=== PATIENT | female | born 1945 | race Caucasian/White ===

== ENCOUNTER 2016-08-09 14:11 | Inpatient (IN) | payer MEDICARE ==
[~2016-08-09] VITALS: Ht 160 cm; Wt 63.5 kg
[~2016-08-09 14:11] MED LIST: ABILIFY2 MG PO; AMBIEN; AMBIEN10 M1 PO; ASPIRIN81 M1 PO; ATIVAN1 MG PO; CELEXA40 MG PO; DEPAKOTE500 M1 PO; INDERAL20 MG PO; LORAZEPAM1 M1 PO; RESPERDAL; RISPERDAL0.25 MG PO; RISPERDAL2 MG PO; SLEEPING PILL PO; VISTARIL25 MG PO
[2016-08-09 15:02] VITALS: BP 153/68
--- NOTE | 2016-08-09 16:50 | NUR ---
PT TO BED 1.
--- NOTE | 2016-08-09 16:51 | NUR ---
DR. SMITH AT BEDSIDE, WITH ORDER TO PUT INDWELLING CATHETER
--- NOTE | 2016-08-09 16:51 | NUR ---
Patient being evaluated by physician at bedside.
[2016-08-09] MEDS ORDERED: NACL 0.9% 500 ML IV ONE (16:55)
--- NOTE | 2016-08-09 17:00 | NUR ---
APATIENT PRESENTS TO ED DUE TO GEN WEAKNESS AND COUGHING AND UNABLE TO URINATE AND UNABLE TO WALK X5 DAYS .DENIES N/V/D; SKIN IS PINK/WARM/DRY; AAOX4 WITH EVEN AND STEADY GAIT; LUNGS CLEAR BL; HR EVEN AND REGULAR; PT DENIES ANY FEVER, CP, SOB, PATIENT STATES PAIN OF 0/10 AT THIS TIME; PATIENT POSITIONED FOR COMFORT; HOB ELEVATED; BEDRAILS UP X2; BED DOWN. ER MD MADE AWARE OF PT STATUS.
--- NOTE | 2016-08-09 17:00 | NUR ---
RAY IN WITH OUT DIFFICULTY, NO BLEEDING NOTED.
--- NOTE | 2016-08-09 17:17 | NUR ---
PT WENT TO THE CT PT AAO VIA MICHEL
--- NOTE | 2016-08-09 17:28 | NUR ---
RELAYED TO DR. SMITH RESULT OF URINE DIPSTICK
--- NOTE | 2016-08-09 18:24 | NUR ---
PT AAO, GRAND DAUGHTER AT BEDSIDE, AWARE PT WILL BE ADMITTED, SKIN WARM TO TOUCH RESP. EVEN AND UNLABORED, IVF ONGOING VIA PERIPHERAL LINE WELL TOLERATED.
--- NOTE | 2016-08-09 18:28 | NUR ---
NOTED VERY DRY LOWER EXTREMITIES AND PLANTAR
--- NOTE | 2016-08-09 18:36 | NUR ---
CALL PLACE TO TELE FOR REPORT WILL CALL ME BACK
--- NOTE | 2016-08-09 18:43 | NUR ---
REPORT GIVEN TO EDWARDO IN TELE
--- NOTE | 2016-08-09 18:59 | NUR ---
TRANSFER TO TELE, PT AAO, GRAND DAUGHTER AT BEDSIDE, NO SOB , RAY DRAINING TO A DINO URINE.
--- NOTE | 2016-08-09 19:00 | NUR ---
ADMITTED THIS 71 YEAR OLD FEMALE FROM ER PER TAMERA WITH CC OF GEN WEAKNESS, AAOX4, DENIES ANY PAIN, ASSESSMENT DONE, HX OBTAINED FROM PT AND GRANDDAUGHTER JULIANNA AT BEDSIDE, SKIN INTACT, RAY CATHETER IN PLACE WITH STRAW COLORED OUTPUT, EDEMA TO PER LEG +1, ORIENTED TO ROOM AND CALL LIGHT, SAFETY MEASURES IN PLACE, CALL LIGHT WITHIN REACH.
[2016-08-09 19:30] VITALS: BP 139/53
[2016-08-09] MEDS ORDERED: ONDANSETRON 4 MG/2 ML VIAL IVP PRN (19:55)
[2016-08-09] MEDS ORDERED: PNEUMOCOCCAL VACCINE 23 MCG/0.5 ML VIAL IMVAC PRN (20:15)
[2016-08-09] MEDS ORDERED: LACTULOSE10 GM/152 PO (20:16)
[2016-08-09] MEDS: NACL 0.9% 1,000 ML IV SCH (20:35)
--- NOTE | 2016-08-09 20:40 | NUR ---
PT HUNGRY, ASSISTED BY BATCH STILL OPERATOR TO EAT TUNA SANDWICH AND ORANGE JUICE X2, CONSUMED 100%, TOLERATED WELL, IVF OF NS @80ML/H STARTED, ALL NEEDS ATTENDED.
--- NOTE | 2016-08-09 22:00 | NUR ---
PT SLEEPING, EASILY AROUSABLE, REPOSITION Q2H AND OFFLOAD PRESSURE AREAS, MONITORED CLOSELY.
[2016-08-09] MEDS: ACETAMINOPHEN 325 MG TAB PO PRN (23:14)
[2016-08-09] MEDS ORDERED: cefTRIAXone 1,000 MG VIAL ONE (23:15)
[2016-08-09 23:20] VITALS: BP 152/73
--- NOTE | 2016-08-09 23:20 | NUR ---
ORAL TEMP OF 101.7, PAGED DR MONTES WITH NEW ORDERS, DO BLOOD CULTURE X2 AND TO START ON ROCEPHIN IVPB, TYLENOL 650 MG PO GIVEN, COOLING MEASURES DONE, MONITORED CLOSELY.
[2016-08-10 00:39] VITALS: BP 148/71
--- NOTE | 2016-08-10 01:00 | NUR ---
VITAL SIGNS TAKEN, TEMP-99.8, CONTINUE COOLING MEASURES, NO SIGNS OF DISTRESS, NO REACTION FROM ROCEPHIN IVPB, MONITORED CLOSELY.
--- NOTE | 2016-08-10 02:00 | NUR ---
OCCASIONAL COUGH NOTED, ENCOURAGE TO EXPECTORATE PHLEGM, NONE NOTED AT THIS TIME, MONITORED CLOSELY.
[2016-08-10 04:00] VITALS: BP 138/82
[2016-08-10] MEDS: ACETAMINOPHEN 325 MG TAB PO PRN ×2 (04:07→20:24)
--- NOTE | 2016-08-10 04:10 | NUR ---
VITAL SIGNS STABLE, AFEBRILE, COMPLAINING O HEADACHE, MEDICATED PRN WITH TYLENOL, MONITORED CLOSELY.
--- NOTE | 2016-08-10 06:00 | NUR ---
PT REPOSITION TO RT SIDE, IVF INFUSING WELL, CONT ON O2 AT 2L/NC, OCCASIONAL COUGH NOTED, DENIES ANY PAIN.
--- NOTE | 2016-08-10 07:10 | NUR ---
CRITICAL LAB RESULTS RECEIVED, PAGED DR MONTES WITH ORDERS, D50 W 1 AMP GIVEN FOR GLUCOSE OF 41, DR BARRERA FOR CONSULT FOR ELEVATED TROPONIN, WILL ENDORSE. Addendum: 08/10/16 at 0733 by Storm Mujica RN CHARTED ON WRONG PT.
--- NOTE | 2016-08-10 07:15 | NUR ---
PT AWAKE, NO DISTRESS NOTED, REPORT GIVEN TO ROLF CELESTIN FOR CONTINUITY OF CARE.
--- NOTE | 2016-08-10 07:16 | NUR ---
RECEIVED REPORT FROM THE SHUTTLE ROUTE VEHICLE OPERATOR NURSE AT BEDSIDE. PT IS ALERT AND ORIENTED. NOTED PT'S IV ON THE L AC 20G NS AT 80. NOTED THAT PT HAD A RAY CATH. WILL BE BACK TO ASSESS HER. CALL LIGHT WITHIN REACH. ALL SAFETY MEASURES IN PLACE.
--- NOTE | 2016-08-10 07:25 | NUR ---
PT OPEN EYES TO TOUCH, NONVERBAL, FAMILY MEMBERS AT BEDSIDE, REPORT GIVEN TO FOSTER CELESTIN FOR CONTINUITY OF CARE. Addendum: 08/10/16 at 8204 by Storm Mujica RN CHARTED ON WRONG PT.
--- NOTE | 2016-08-10 07:45 | NUR ---
PT V/S ARE WITHIN NORMAL RANGE. SKIN IS INTACT. BLE EDEMA , PITTING +2. PT IS ON NC 2.AT 2L. SHE HAS AN OCCASIONAL COUGH, NON-PRODUCTIVE. PT CHEEKS AR FLUSHED. IV ON L AC , PATENT AND INFUSING NS AT 80; RAY CATH BAG IS FULL OF YELLOW CLEAR URINE 600ML. TEMP AT 99.6F. NO COMPLAINTS AT THIS TIME. WILL CONTINUE TO CHECK ON PT.
[2016-08-10 08:00] VITALS: BP 142/76
[2016-08-10] MEDS: NACL 0.9% 1,000 ML IV SCH ×3 (09:16→23:36)
[2016-08-10] MEDS: ENOXAPARIN 30 MG/0.3 ML SYR SUBQ SCH (09:17)
--- NOTE | 2016-08-10 09:30 | NUR ---
GRANDSON CAME AND ASKED ABOUT HER CONDITION. EXPLAINED TO HIM THAT SHE IS STILL UNDER OBSERVATION. SHE STILL HAS A RAY FOR URINE RETENTION. WAITING ON THE 3RD TROPONIN TODAY. THE LAST TWO WERE NORMAL. PT IS STILL VERY WEAK. POSSIBLY NEED A PT EVAL AND TX. WAITING ON RESULT TO BLOOD CULTURES FOR FEVER. ANSWERED ALL QUESTIONS. EDUCATE PT ABOUT WALKING AND GETTING LEG EXERCISE. HE STATES SHE IS USUALLY IN BED THE WHOLE TIME. WILL CONTINUE TO MONITOR.
[2016-08-10 12:00] VITALS: BP 135/70
--- NOTE | 2016-08-10 12:00 | NUR ---
V/S STABLE. NO SIGNS OF DISTRESS OR COMPLAINTS. WILL CONTINUE TO MONITOR PT.
--- NOTE | 2016-08-10 14:00 | NUR ---
PT SLEEPING. RESTING COMFORTABLY WITH NO SIGNS OF DISTRESS. WILL CONTINUE TO MONITOR PT.
[2016-08-10 16:00] VITALS: BP 147/70
--- NOTE | 2016-08-10 16:00 | NUR ---
PT'S GRANDSON WAS HERE AGAIN. NO OTHER UPDATES BEING THURSDAY AND ALL. SHE C/O OF COUGHING. SPOKE W/ DR. MONTES AND ORDERED HER SOME MUCINEX BID. WILL HAVE HER FIRST DOSE TONIGHT.
[2016-08-10] MEDS ORDERED: LACTULOSE BULK 2400 GM/240 ML BTL PO SCH (17:00)
[2016-08-10] MEDS: LACTULOSE 20 GM/30 ML UDC PO SCH (17:09)
[2016-08-10] MEDS: PROPRANOLOL 20 MG TAB PO SCH (17:11)
--- NOTE | 2016-08-10 18:15 | NUR ---
NEEDED THE BEDPAN. HAS A SMALL BM. IS HAVING DINNER NOW. NO COMPLAINTS. WILL CONTINUE TO MONITOR.
--- NOTE | 2016-08-10 19:20 | NUR ---
ENDORSED PT TO THE NIGHTSHIFT NURSE AT BEDSIDE FOR CONTINUITY OF CARE. PT IS STABLE.
--- NOTE | 2016-08-10 19:25 | NUR ---
RECEIVED PT AWAKE ON HIGH FOWLERS POSITION CURRENTLY BEING ASSISTED BY KRYSTAL WOODSON IN EATING HER DINNER, TOLERATING WELL WITH GOOD APPETITE, OCCASIONAL DRY COUGH NOTED, ON O2 AT 2L/NC, VITAL SIGNS TAKEN, BP SLIGHTLY ELEVATED, DENIES ANY PAIN, TEMP-100.7, WILL GIVE TYLENOL PO PRN, COOLING MEASURES STARTED, RAY CATH IN PLACE WITH YELLOW OUTPUT, SAFETY MEASURES IN PLACE, CALL LIGHT WITHIN REACH.
[2016-08-10 20:00] VITALS: BP 153/90
[2016-08-10] MEDS: risperiDONE 1 MG TAB PO SCH (20:24)
[2016-08-10] MEDS: hydrOXYzine PAMOATE 25 MG CAP PO SCH (20:24)
[2016-08-10] MEDS: guaiFENesin 600 MG TABER PO SCH (20:24)
--- NOTE | 2016-08-10 20:30 | NUR ---
DUE MEDICATIONS GIVEN, TYLENOL PO GIVEN FOR TEMP OF 100.7, CONTINUE COOLING MEASURES, REPOSITIONED Q2H AND OFFLOAD PRESSURE AREAS.
[2016-08-10] MEDS: LORazepam 1 MG TAB PO SCH (22:18)
--- NOTE | 2016-08-10 22:20 | NUR ---
ATIVAN PO GIVEN FOR SLEEP, MONITORED CLOSELY.
--- NOTE | 2016-08-10 23:40 | NUR ---
SLEEPING, EASILY AROUSABLE BUT DROWSY, VITAL SIGNS STABLE, AFEBRILE, NO SIGNS OF DISTRESS, CONTINUE TO MONITOR CLOSELY.
[2016-08-11] VITALS (7 sets, daily range): BP systolic 108–153; BP diastolic 61–87
--- NOTE | 2016-08-11 03:40 | NUR ---
ASLEEP, EASILY AROUSABLE, VITAL SIGNS STABLE, AFEBRILE, IVF INFUSING WELL.
--- NOTE | 2016-08-11 05:00 | NUR ---
BM WITH SMALL SOFT STOOL, PERINEAL CARE DONE, CONTINUE TO REPOSITION Q2H AND OFFLOAD PRESSURE AREAS.
--- NOTE | 2016-08-11 07:15 | NUR ---
PT AWAKE, VERBALLY RESPONSIVE, NO SIGNS OF DISTRESS, REPORT GIVEN TO RN ALEXIS FOR CONTINUITY OF CARE.
--- NOTE | 2016-08-11 07:30 | NUR ---
REPORT RECEIVED AT BEDSIDE FROM SABI PATEL . PATIENT IN BED , AWAKE,ALERT ,ORIENTED (T/2) , ABLE TO ANSWER QUESTIONS AND FOLLOW COMMANDS. WITH 02 VIA NC , NO SOB NOTED. WITH IV FLUIDS INFUSING WELL. PATIENT WITH RAY CATH DRAINING WELL . PLAN OF CARE DISCUSSED WITH HER , SHE VERBALIZED UNDERSTANDING , BUT NEED REINFORCEMENT . WILL CONTINUE MONITORING.
[2016-08-11] MEDS: guaiFENesin 600 MG TABER PO SCH ×2 (09:33→21:15)
[2016-08-11] MEDS: LACTULOSE 20 GM/30 ML UDC PO SCH ×3 (09:33→17:34)
[2016-08-11] MEDS: PROPRANOLOL 20 MG TAB PO SCH ×3 (09:33→17:34)
[2016-08-11] MEDS: ENOXAPARIN 30 MG/0.3 ML SYR SUBQ SCH (09:34)
--- NOTE | 2016-08-11 11:15 | NUR ---
PATIENT HAS BEEN SCREENED AND CATEGORIZED MODERATE NUTRITION RISK. PATIENT WILL BE SEEN WITHIN 3-5 DAYS OF ADMISSION. 08/12/16-08/14/[address]
[2016-08-11] MEDS: NACL 0.9% 1,000 ML IV SCH ×2 (11:35→21:51)
--- NOTE | 2016-08-11 14:42 | NUR ---
FAXED INITIAL REVIEW TO [facility] [phone] PHONE ARTEMIO [phone] SPOKE WITH ARTEMIO ABOUT SNF. SHE SAID TO USE [facility].
[2016-08-11] MEDS ORDERED: ASPIRIN 81 MG TAB.CHEW PO SCH (15:30)
--- NOTE | 2016-08-11 16:48 | NUR ---
RECEIVED A CALL FROM JOSELITO FROM [facility]. THE PATIENT HAS BEEN ACCEPTED AND CAN GO TO ROOM 129D UNDER DR FIGUEROA. WAITING FOR ORDER.
[2016-08-11] MEDS ORDERED: MUCINEX PO (16:56)
[2016-08-11] MEDS ORDERED: NOVAPLUS ONDA2 MG/M1 IVP (16:56)
[2016-08-11] MEDS ORDERED: LOVENOX30 MG/0.1 SUBQ (16:56)
[2016-08-11] MEDS ORDERED: ZITHROMAX500 M1 IV (16:56)
[2016-08-11] MEDS ORDERED: ROCEPHIN2 GM IVP (16:57)
--- NOTE | 2016-08-11 16:58 | NUR ---
SPOKE WITH DR MONTES AND INFORMED HIM ABOUT PATIENT SPIKING TEMP LAST NIGHT AND HER O2 SATS. HE SAID HE WOULD STILL SEND PATIENT TODAY TO [facility] ON O2 THERAPY, IV ANTIBIOTICS AND FOR PT. I SPOKE WITH ARTEMIO AT [facility] AND INFORMED HER. SHE SAID SHE ALREADY GAVE THE AUTH TO [facility]. THE AUTH FOR [facility] IS [id number]. PHONE FOR [facility] [phone]. I CALLED [facility] AND SPOKE WITH MIK CELESTIN FORCE DISPATCHER AND INFORMED HER THAT THIS PATIENT WILL BE COMING TODAY FOR PT, IV ANTIBIOTICS AND O2 THERAPY. SHE SAID NO PROBLEM. MARIAH CELESTIN CHARGE NURSE AWARE. SHE WILL SET UP TRANSPORT.
--- NOTE | 2016-08-11 18:00 | NUR ---
SPOKE WITH [facility] ([phone]). PT WILL BE PICKED UP AT 2130 HRS TONIGHT VIA WHEELCHAIR AND OXYGEN. PT IS GOING TO [facility] ROOM 129-D.
--- NOTE | 2016-08-11 19:39 | NUR ---
REPORT GIVEN VIA PHONE TO [facility] RN
--- NOTE | 2016-08-11 19:40 | NUR ---
REPORT GIVEN AT BEDSIDE TO SABI PARSON FOR CONTINUITY OF CARE.
--- NOTE | 2016-08-11 19:45 | NUR ---
RECEIVED REPORT FROM DAY NURSE, ALEXIS, FOR CONTINUITY OF CARE. PATIENT READY FOR TRANSFER TO [facility]. REPORT ALREADY CALLED, AND TRANSPORTATION HAS BEEN SET UP. PATIENT IS RESTING IN BED. NO RESPIRATORY DISTRESS, SOB, OR DISCOMFORT; PATIENT ON O2 2L NC, TOLERATING WELL. INITIAL ASSESSMENT AND BODY CHECK DONE. PATIENT IS AOX3, FORGETFUL, REDNESS NOTED TO PERINEAL AREA, IV ACCESS TO LEFT AC 20G, PATENT. PATIENT HAS F/C IN PLACE DRAINING CLOUDY YELLOW. DISCUSSED PLAN OF CARE, MEDICATION REGIMENT, AND PAIN MANAGEMENT WITH PATIENT. PATIENT VERBALIZED UNDERSTANDING. PLACED PATIENT ON SAFETY/FALL/PRESSURE ULCER PRECAUTIONS. CALL LIGHT LEFT WITHIN REACH, WILL CONTINUE TO MONITOR.
--- NOTE | 2016-08-11 20:35 | NUR ---
PATIENT'S DISCHARGE PAPERWORK PRINTED OUT, EXPLAINED/EDUCATED FORMS TO PATIENT. PATIENT VERBALIZED UNDERSTANDING AND SIGNED. AWAITING TRANSPORTATION FOR TRANSFER.
[2016-08-11] MEDS: LORazepam 1 MG TAB PO SCH (21:15)
[2016-08-11] MEDS: risperiDONE 1 MG TAB PO SCH (21:15)
[2016-08-11] MEDS: hydrOXYzine PAMOATE 25 MG CAP PO SCH (21:15)
--- NOTE | 2016-08-11 21:17 | NUR ---
IVPB ROCEPHIN ADMINISTERED EARLIER, OKAY BY PHARMACY. MEDICATION ADMINISTERED EARLY TO MAKE SURE PATIENT RECEIVES ABX DOSE PRIOR TO SNF TRANSFER, OTHERWISE PATIENT MAY NOT RECEIVE DOSE TONIGHT.
--- NOTE | 2016-08-11 22:25 | NUR ---
FOLLOWED UP WITH RADHA FROM [facility] ABOUT PATIENT TRANSFER. RADHA STATED TRANSPORTATION HAD JUST ARRIVED AND SHOULD BE IN, IN A FEW MINUTES. PATIENT RESTING IN BED. NO RESPIRATORY DISTRESS, SOB, OR DISCOMFORT.
--- NOTE | 2016-08-11 22:45 | NUR ---
PATIENT DISCHARGED AND TRANSFERRED FOR [facility] AT THIS TIME VIA WHEELCHAIR: [facility]. ALL ID BANDS, AND TELE MONITOR REMOVED AT THIS TIME. PATIENT BEING TRANSPORTED WITH IV ACCESS FOR CONTINUED IV ABX AT FACILITY.
[2016-08-12] MEDS ORDERED: ASPIRIN 81 MG TAB.CHEW PO SCH (09:00)
== END 2016-08-11 22:45 | DRG 640 ==
LOC: MED 14:40 → MTU 18:25
PROVIDERS: ADMIT Hospitalist; ATTEND Hospitalist
DX: E86.0 Dehydration (principal); J18.9 Pneumonia, unspecified organism; N39.0 Urinary tract infection, site not specified; R53.1 Weakness; I10 Essential (primary) hypertension; G40.909 Epilepsy, unspecified, not intractable, without status epilepticus; J44.9 Chronic obstructive pulmonary disease, unspecified; J45.909 Unspecified asthma, uncomplicated; R09.02 Hypoxemia; Z79.82 Long term (current) use of aspirin; Z79.899 Other long term (current) drug therapy; Z88.8 Allergy status to other drugs, medicaments and biological substances; Z86.73 Personal history of transient ischemic attack (TIA), and cerebral infarction without residual deficits; Z87.891 Personal history of nicotine dependence

== ENCOUNTER 2019-02-25 12:27 | Emergency (ER) | payer MEDICARE ==
[~2019-02-25] VITALS: Ht 160 cm; Wt 62.2 kg
[~2019-02-25 12:27] MED LIST changes: -ABILIFY2 MG PO; -AMBIEN; -AMBIEN10 M1 PO; +ASPI-1718 PO; -ASPIRIN81 M1 PO; -ATIVAN1 MG PO; +AZIT500P1 IV; -CELEXA40 MG PO; -DEPAKOTE500 M1 PO; +GUAI-791 PO; +HYDR25CA1 PO; -INDERAL20 MG PO; +LACT10SO1 PO; +LORA-476 PO; -LORAZEPAM1 M1 PO; +LOV30I SUBQ; +ONDA2SOL45 IVP; +PROP20TA29 PO; -RESPERDAL; +RISP2TAB PO; -RISPERDAL0.25 MG PO; -RISPERDAL2 MG PO; +ROC2I IVP; -SLEEPING PILL PO; -VISTARIL25 MG PO
[2019-02-25 12:38] VITALS: BP 123/54
--- NOTE | 2019-02-25 12:43 | NUR ---
PATIENT AMBULATED TO BED 4.
--- NOTE | 2019-02-25 12:52 | NUR ---
73F C/O PRODUCTIVE COUGH X5 DAYS. THICK WHITE FROTHY SPUTUM. STATES NASAL CONGESTION, DRY THROAT, POST NASAL DRIP. COUGH WORSE AT NIGHT. DENIES SNEEZING, SORE THROAT, N/V/D/FEVER/CHILLS. TX AT HOME WITH PSUEDAFED, MUCINEX, ROBITUSSIN TO NO RELIEF. OROPHARYNX PINK AND MOIST. LUNGS CTAB. MEDHX:DEPRESSION, ANXIETY RX:TRAZADONE, HYDROXYINE Addendum: 02/25/19 at 1254 by LISSA STATES OCCASIONAL SOB
--- NOTE | 2019-02-25 13:10 | NUR ---
XRAY AT BEDSIDE
--- NOTE | 2019-02-25 13:49 | NUR ---
DR. CUELLAR EVALUATING PT AT BEDSIDE
[2019-02-25 14:10] VITALS: BP 116/69
== END 2019-02-25 14:08 | disposition home or self-care (01) ==
LOC: MED 12:27
DX: R05 Cough (principal); J44.9 Chronic obstructive pulmonary disease, unspecified; I10 Essential (primary) hypertension; F32.9 Major depressive disorder, single episode, unspecified; F41.9 Anxiety disorder, unspecified; Z86.73 Personal history of transient ischemic attack (TIA), and cerebral infarction without residual deficits; Z79.82 Long term (current) use of aspirin; Z79.899 Other long term (current) drug therapy; Z88.2 Allergy status to sulfonamides; Z88.8 Allergy status to other drugs, medicaments and biological substances; Z98.890 Other specified postprocedural states
CPT/HCPCS: 71045; 99283; Q0092

== ENCOUNTER 2020-04-10 12:08 | Emergency (ER) | payer MEDICARE ==
[~2020-04-10] VITALS: Ht 160 cm; Wt 73.9 kg
[~2020-04-10 12:08] MED LIST changes: -ASPI-1718 PO; +ASPI-1822 PO
[2020-04-10 12:16] VITALS: BP 152/51
--- NOTE | 2020-04-10 12:21 | NUR ---
74 YEAR OLD FEMALE COMPLAINS OF COUGH AND SOB ON EXERTION X 1 YEAR AGO. PT STATES SHE HAS BEEN UNABLE TO GET RID OF COUGH AND HER PRIMARY CARE DOCTOR HAS BEEN UNABLE TO FIGURE OUT WHY WELL. PT COMPLAINS OF SOB ON EXERTION WHEN SHE HAS TO WALK AROUND BUT THIS HAS BEEN HAPPENING FOR A WHILE. PT ALERT AND AWAKE, BREATHING EVEN AND UNLABORED, LUNGS CLEAR BL, SKIN WARM AND DRY. BED IN LOWEST POSITION, LOCKED, BED RAIL UPX1. PMH - COPD ALLERGIES - DEPAKOTE, NAPROXEN, REMERON
[2020-04-10 14:12] VITALS: BP 152/51
--- NOTE | 2020-04-10 14:12 | NUR ---
Patient discharged with v/s stable. Written and verbal after care instructions given and explained. Patient alert, oriented and verbalized understanding of instructions. Ambulatory with steady gait. All questions addressed prior to discharge. ID band removed. Patient advised to follow up with PMD. Rx of PREDNISONE, PROMETHAZINE given. Patient educated on indication of medication including possible reaction and side effects. Opportunity to ask questions provided and answered.
== END 2020-04-10 14:12 | disposition home or self-care (01) ==
LOC: MED 12:08
DX: R05 Cough (principal); I10 Essential (primary) hypertension; J44.9 Chronic obstructive pulmonary disease, unspecified; Z88.8 Allergy status to other drugs, medicaments and biological substances; Z88.6 Allergy status to analgesic agent; Z79.899 Other long term (current) drug therapy; Z86.73 Personal history of transient ischemic attack (TIA), and cerebral infarction without residual deficits; Z87.891 Personal history of nicotine dependence
CPT/HCPCS: 36600; 71045; 82803; 99284; Q0092; 99283

== ENCOUNTER 2020-08-02 13:15 | Emergency (ER) | payer MEDICARE ==
[~2020-08-02] VITALS: Ht 160 cm; Wt 70.3 kg
[2020-08-02 13:19] VITALS: BP 145/75
[2020-08-02] MEDS ORDERED: SODIUM CHLORIDE FLUSH 10 ML SYR IVF STA (13:22)
[2020-08-02] MEDS ORDERED: NITROGLYCERIN 0.4 MG TAB SL STA (13:22)
--- NOTE | 2020-08-02 13:22 | NUR ---
PT W/C ASSISTED TO BED 6.
--- NOTE | 2020-08-02 13:30 | NUR ---
75 Y/O F BIB SELF WITH C/C LEFT ANKLE AND FOOT PAIN S/P FALL X 2 DAYS AGO. PT ALSO STATES SHORTNESS OF BREATH. BASELINE O2 SATURATION 87% ON ROOM AIR, PLACED ON 4L AND O2 SATURATION NOW 99%. PT STATES SHE HAS BEEN EXPOSURE AROUND FAMILY WHO HAS TESTED POSITIVE FOR COVID. PT STATES SHE HAS BEEN COUGHING, HOWEVER, HAS A HX OF CHRONIC COUGHS. PT IN NO OBVIOUS DISTRESS. LUNG SOUNDS CLEAR BILATERALLY. PT PLACED ONTO ED MANAGER, PULSE OX, BP CUFF. HX: ANXIETY, PARKINSONS, INSOMNIA ALLERGIES: DIVALPROEX, MIRTAZAPINE, NAPROXEN MEDS: SEE LIST
--- NOTE | 2020-08-02 13:31 | NUR ---
LAB AT BEDSIDE
--- NOTE | 2020-08-02 13:37 | NUR ---
KAREN SWAB COLLECTED, LEFT WITH JOAN LINDER TECH
[2020-08-02 13:45] LABS: BASOPHILS % (AUTO) 0.8 % (0.0-2.0); EOSINOPHILS % (AUTO) 0.1 % (0.0-4.0); HEMOGLOBIN 12.3 g/dL (12.0-16.0); LYMPHOCYTES # (AUTO) 0.4 K/uL (2.5-16.5); LYMPHOCYTES % (AUTO) 6.8 % (20.5-51.1); MEAN CORPUSCULAR HEMOGLOBIN 30 pg (27-31); MEAN CORPUSCULAR HGB CONC 32 g/dL (33-37); MEAN CORPUSCULAR VOLUME 93.5 fL (80-94); MONOCYTES # (AUTO) 0.2 K/uL (0.8-1.0); MONOCYTES % (AUTO) 4.2 % (1.7-9.3); NEUTROPHILS # (AUTO) 4.9 K/uL (1.8-7.7); NEUTROPHILS % (AUTO) 88.1 % (42.2-75.2); PLATELET COUNT (AUTO) 331 K/uL (140-450); RED BLOOD CELL COUNT(AUTO) 4.06 MIL/uL (4.20-5.40); RED CELL DISTRIBUTION WIDTH 14.3 % (11.6-13.7); WHITE BLOOD COUNT (AUTO) 5.6 K/uL (4.8-10.8)
--- NOTE | 2020-08-02 13:49 | NUR ---
RAD AT BEDSIDE
[2020-08-02 14:03] LABS: ALBUMIN 3.2 g/dL (3.4-5.0); ANION GAP 9.2 (8-16); ASPARTATE AMINOTRANSFERASE 45 U/L (15-37); CARBON DIOXIDE 34.1 mmol/L (21-32); CHLORIDE 103 mmol/L (98-107); CREATININE 1.5 mg/dL (0.6-1.3); GLUCOSE 186 mg/dL (74-106); POTASSIUM 4.3 mmol/L (3.5-5.1); SODIUM SERUM 142 mmol/L (136-145); TOTAL BILIRUBIN 0.3 mg/dL (0.0-1.0); UREA NITROGEN, BLOOD 25 mg/dL (7-18)
--- NOTE | 2020-08-02 14:15 | NUR ---
PT AWAKE RESTING IN SEMI-FOWLERS POSITION. EQUAL CHEST RISE AND FALL WITH NO OBVIOUS DISTRESS. PT STATES NO SHORTNESS OF BREATH. RESPIRATIONS EVEN AND UNLABORED. SANE RN IN PLACE. BED LOCKED IN LOWEST POSITION, SIDE RAILS X 1, CALL LIGHT IN REACH
--- NOTE | 2020-08-02 14:38 | NUR ---
LAB AT BEDSIDE
--- NOTE | 2020-08-02 14:38 | NUR ---
RT AT BEDSIDE
--- NOTE | 2020-08-02 14:39 | NUR ---
RSV/INFLUENZA SWABS COLLECTED AND SENT TO LAB
--- NOTE | 2020-08-02 15:01 | NUR ---
DR. WHITAKER AT BEDSIDE
[2020-08-02] MEDS ORDERED: DEXAMETHASONE 10 MG/ML VIAL IVP ONE (15:20)
[2020-08-02] MEDS ORDERED: AZITHROMYCIN 500 MG in DEXTROSE 5% 250 ML IV ONE (15:20)
--- NOTE | 2020-08-02 15:20 | NUR ---
PT MOVED TO BED 8.
--- NOTE | 2020-08-02 15:25 | NUR ---
PT AWAKE RESTING IN SEMI-FOWLERS POSITION. EQUAL CHEST RISE AND FALL WITH NO OBVIOUS DISTRESS. PT STATES NO SHORTNESS OF BREATH. RESPIRATIONS EVEN AND UNLABORED. POKE IN IN PLACE. BED LOCKED IN LOWEST POSITION, SIDE RAILS X 1, CALL LIGHT IN REACH
[2020-08-02] MEDS ORDERED: cefTRIAXone 1,000 MG VIAL ONE (15:33)
[2020-08-02] MEDS ORDERED: PRAV20TA2 PO (15:49)
[2020-08-02] MEDS ORDERED: LAM25 PO (15:49)
[2020-08-02] MEDS ORDERED: PRED1TAB2 PO (15:49)
[2020-08-02] MEDS ORDERED: VITD400 PO (15:49)
[2020-08-02] MEDS ORDERED: PRAM0.5T4 PO (15:49)
[2020-08-02] MEDS ORDERED: TRAZ-343 PO (15:49)
--- NOTE | 2020-08-02 16:01 | NUR ---
APPLIED POSTERIOR SHORT LEG TO LEFT LEG WITHOUT ANY ISSUES
[2020-08-02 16:07] LABS: PROTHROMBIN TIME 9.8 secs (10.8-13.4)
[2020-08-02] MEDS ORDERED: AZITHROMYCIN 500 MG INJ VIAL IV ONE (16:08)
[2020-08-02 16:14] LABS: C-REACTIVE PROTEIN QUANT 8.3 mg/dL (0.0-0.9)
--- NOTE | 2020-08-02 16:20 | NUR ---
PT AWAKE RESTING IN SEMI-FOWLERS POSITION. PT STATES PAIN IS NOW 2/10. ALL PT NEEDS MET AT THIS TIME. EQUAL CHEST RISE AND FALL. POSTAL SERVICE WINDOW CLERK IN PLACE. BED LOCKED IN LOWEST POSITION, SIDE RAILS X 1, CALL LIGHT IN REACH
[2020-08-02 16:26] LABS: LACTATE DEHYDROGENASE 386 U/L (81-234)
--- NOTE | 2020-08-02 16:33 | NUR ---
Call received from Richy Driver for critical lab value, Lactic Acid 3.4. ERMD made aware.
--- NOTE | 2020-08-02 17:05 | NUR ---
PT PROVIDED WITH BEDPAN FOR URINE SAMPLE. URINE SAMPLE UNSUCCESSFUL, PT STATES SHE IS UNABLE TO URINATE AT THIS TIME. BEDPAN REMOVED FROM PTS UNDERSIDE AND ASSISTED BACK INTO POSITION OF COMFORT. VSS. SUIT MAKER IN PLACE. BED LOCKED IN LOWEST POSITION, SIDE RAILS X 1, CALL LIGHT IN REACH
[2020-08-02 17:10] LABS: RSV NEGATIVE (NEGATIVE)
--- NOTE | 2020-08-02 17:20 | NUR ---
PT PROVIDED WITH 2 CUPS OF WATER PER REQUEST
--- NOTE | 2020-08-02 17:30 | NUR ---
PT AWAKE RESTING IN SEMI-FOWLERS POSITION. PT STATES PAIN IS STILL 2/10. ALL PT NEEDS MET AT THIS TIME. EQUAL CHEST RISE AND FALL. WINDOWS SERVER SPECIALIST IN PLACE. BED LOCKED IN LOWEST POSITION, SIDE RAILS X 1, CALL LIGHT IN REACH
--- NOTE | 2020-08-02 18:15 | NUR ---
REPORT GIVEN TO SABI DAN VIA TELEPHONE AND ADVISED ETA FOR [facility]ORT @ 1930. WILL STATES ROOM NUMBER CHANGED FROM [phone] TO [phone]. REPORT #:
--- NOTE | 2020-08-02 18:23 | NUR ---
PT COMPLETED 1 CUP OF WATER AND STATES SHE IS GOING TO TRY AND URINATE. PT ASSISTED WITH BEDPAN. HOSPITAL EDUCATOR IN PLACE. BED LOCKED IN LOWEST POSITION, SIDE RAILS X 2, CALL LIGHT IN REACH
--- NOTE | 2020-08-02 18:29 | NUR ---
PT STATES SHE IS UNABLE TO URINATE INTO BEDPAN AT THIS TIME. PT REQUESTED TO LEAVE BEDPAN IN PLACE FOR AN ADDITIONAL 10 MINUTES. PT WILL CONTINUE TO TRY TO URINATE.
--- NOTE | 2020-08-02 18:30 | NUR ---
PT MADE AWARE OF TRANSPORT TO [facility] WITH ETA @ 1930.
--- NOTE | 2020-08-02 18:57 | NUR ---
URINE SAMPLE COLLECTION UNSUCCESSFUL. PT STATES SHE IS UNABLE TO URINATE AT THIS TIME.
--- NOTE | 2020-08-02 19:21 | NUR ---
REPORT AND CONTINUATION OF CARE GIVEN TO SABI POOLE
[2020-08-02 20:58] VITALS: BP 141/70
--- NOTE | 2020-08-02 20:58 | NUR ---
Patient to be transferred to [facility] RM 662. Receiving facility has accepting physician and available space. ER physician has signed transfer form. Patient or responsible constitution party has agreed to transfer and signed form. Patient belongings inventoried and will be sent with patient. Copy of nursing notes, lab reports, EKG, Physicians Orders and X-rays to be sent with patient. Report called to WILL (RN) BY MORNING SHIFT NURSE at receiving facility. [facility] service has ARRIVED FOR transfer.
== END 2020-08-02 20:58 | disposition designated cancer center or children's hospital (05) ==
LOC: MED 13:15
DX: S82.492A Other fracture of shaft of left fibula, initial encounter for closed fracture (principal); U07.1 COVID-19; J12.82 Pneumonia due to coronavirus disease 2019; J44.9 Chronic obstructive pulmonary disease, unspecified; I10 Essential (primary) hypertension; Z86.73 Personal history of transient ischemic attack (TIA), and cerebral infarction without residual deficits; Z88.8 Allergy status to other drugs, medicaments and biological substances; W18.39XA Other fall on same level, initial encounter; Y93.89 Activity, other specified; Y92.89 Other specified places as the place of occurrence of the external cause; Y99.8 Other external cause status
CPT/HCPCS: 29515; 36415; 36600; 71045; 73590; 73610; 80053; 82550; 82728; 82803; 83605; 83615; 83880; 84484; 85025; 85379; 85384; 85610; 85730; 86140; 87040; 87420; 87426; 87804; 93005; 96365; 96367; 96375; 99291; J0456; J0696; J1100; J7060

== ENCOUNTER 2021-04-05 09:45 | Inpatient (IN) | payer MEDICARE, OTHER ==
[~2021-04-05] VITALS: Ht 160 cm; Wt 72.6 kg
[~2021-04-05 09:45] MED LIST changes: -ASPI-1822 PO; -AZIT500P1 IV; -GUAI-791 PO; +LACT-103 PO; -LACT10SO1 PO; +LAM25 PO; -LORA-476 PO; -LOV30I SUBQ; -ONDA2SOL45 IVP; +PRAM0.5T4 PO; +PRAV20TA2 PO; +PRED1TAB2 PO; -RISP2TAB PO; -ROC2I IVP; +TRAZ-343 PO; +VITD400 PO
--- NOTE | 2021-04-05 09:49 | NUR ---
BIB WHEELCHAIR TO ER BED 8
[2021-04-05 09:53] VITALS: BP 144/82
--- NOTE | 2021-04-05 09:55 | NUR ---
Dr. Saleem is evaluating patient at bedside.
--- NOTE | 2021-04-05 10:00 | NUR ---
75 y/o F BIB granddaughter c/o shortness of breath x 0400 s/p oxygen concentrator overheating. Patient A&Ox4, wheelchair assisted, presented with SOB. Patient states @ 0400 her oxygen concentrator overheated; patient attempted to contact customer service who states new machine will not be delivered until next week. Patient states she was on hospice after being admitted for 3 weeks for +COVID in 07/2020. Patient reports cough normal for her x 2 years. Pt placed into gown and SpO2 97% on 3L by NC. No respiratory distress at this time RR 14 even/unlabored. quality assurance monitor body in place. Bed locked in lowest position, side rails x 1. PMH: +COPVID, HTN, schizo, HLD, kidney issues, lung disease Meds: Propanolol, trazodone, hydroxyzine, pravastatin A: NSAIDs, Naproxen (red rashes rxn), depakote, risperidone Addendum: 04/05/21 at 1105 by [facility] *Per patient and granddaughter, portable [employer] machine broke earlier this morning with replacement arrival Thursday. Patient reports speaking with PCP regarding oxygen concentrator and is pending an "authorization signature" before insurance can approve.
--- NOTE | 2021-04-05 10:06 | NUR ---
Marguerite (granddaughter) at bedside
--- NOTE | 2021-04-05 10:38 | NUR ---
Spoke with rail maintenance worker who states patient will need to personally call the oxygen manufacture to change or take back the current system.
--- NOTE | 2021-04-05 13:33 | NUR ---
Marguerite remains at bedside. patient resting in position of comfort. compliance monitor in place. VSS; respirations even/unlabored.
--- NOTE | 2021-04-05 13:40 | NUR ---
Patient transported to CT by wheelchair.
--- NOTE | 2021-04-05 13:40 | NUR ---
Marguerite (granddaughter) ; Bernice (daughter)
[2021-04-05] MEDS ORDERED: DEXTROSE 50% 50 ML SYR IVP PRN (14:05)
[2021-04-05] MEDS ORDERED: ACETAMINOPHEN 325 MG TAB PO PRN (14:05)
[2021-04-05] MEDS ORDERED: SODIUM PHOS / POTASSIUM PHOS 1 PKT PDR PO PRN (14:05)
[2021-04-05] MEDS ORDERED: INSULIN LISPRO SLIDING SCALE 100 UNITS/ML VIAL SUBQ PRN (14:05)
[2021-04-05] MEDS ORDERED: ONDANSETRON 4 MG/2 ML VIAL IM/IVP PRN (14:05)
[2021-04-05] MEDS ORDERED: HYDROcodone/APAP 5/325 MG 1 TAB TAB PO PRN (14:05)
[2021-04-05] MEDS ORDERED: POTASSIUM CHLORIDE 10 MEQ TABER PO PRN (14:05)
[2021-04-05] MEDS ORDERED: DOCUSATE SODIUM 100 MG GELCAP PO PRN (14:05)
[2021-04-05] MEDS ORDERED: MORPHINE SULFATE 2 MG/ML SYR IVP PRN (14:05)
[2021-04-05] MEDS ORDERED: MAGNESIUM OXIDE 400 MG TAB PO PRN (14:05)
[2021-04-05] MEDS ORDERED: ALBUTEROL SULFATE/IPRATROPIU 3 ML SOL IH PRN (14:10)
--- NOTE | 2021-04-05 14:13 | NUR ---
RECEIVED CALL FROM ER NURSE FOR REPORT ON PT. AWAITING PT ARRIVAL.
--- NOTE | 2021-04-05 14:23 | NUR ---
RAD at bedside
--- NOTE | 2021-04-05 14:29 | NUR ---
Report given to SABI Barraza.
--- NOTE | 2021-04-05 14:40 | NUR ---
Patient will be admitted to care of Dr. Adorno. Admited to Telemetry Will go to room 106-B. Belongings list completed. Report to SABI Barraza
--- NOTE | 2021-04-05 15:00 | NUR ---
PT ARRIVED TO UNIT. PT IS AA&OX4 AND AMBULATORY. PT IS ON 3L O2 VIA NC. SKIN IS WARM, DRY, AND INTACT. PT IS ABLE TO COMMUNICATE WELL. PT DENIES PAIN OR DISCOMFORT AT THIS TIME. LAC 20 G IV ACCESS. WILL CONTINUE TO MONITOR.
--- NOTE | 2021-04-05 15:23 | NUR ---
PT REQUESTED HER CUEVAS BE PUT IN THE SAFE. CONTACTED ADMITTING, AWAITING ARRIVAL.
--- NOTE | 2021-04-05 15:44 | NUR ---
FOLLOWED UP WITH ADMITTING, STATES SHE MAY NOT BE ABLE TO COME FOR AN HOUR OR LONGER. PT AWARE STILL WANTS MONEY IN SAFE. AWAITING ADMITTING ARRIVAL TO PUT BELONGINGS IN SAFE.
[2021-04-05 16:00] VITALS: BP 131/81
[2021-04-05] MEDS ORDERED: BLOOD GLUCOSE MONITORING 1 DEV DEV FS SCH (16:30)
[2021-04-05] MEDS: PROPRANOLOL 20 MG TAB PO SCH (16:42)
[2021-04-05] MEDS ORDERED: PRAMIPEXOLE 0.5 MG TAB PO SCH (17:00)
--- NOTE | 2021-04-05 17:50 | NUR ---
PT CONDITION IS STABLE. PT IS AWAKE AND WATCHING TV. PT DENIES PAIN OR DISTRESS AT THIS TIME. SAFETY PRECAUTIONS IN PLACE. WILL CONTINUE TO PERFORM FREQ ROUNDING.
[2021-04-05] MEDS ORDERED: LAM25 PO (18:12)
[2021-04-05] MEDS ORDERED: VITD400 PO (18:12)
[2021-04-05] MEDS ORDERED: PRED1TAB2 PO (18:12)
[2021-04-05] MEDS ORDERED: TRAZ-343 PO (18:12)
[2021-04-05] MEDS ORDERED: PANT40EC PO (18:13)
[2021-04-05 18:55] LABS: BASOPHILS % (AUTO) 0.5 % (0.0-2.0); EOSINOPHILS # (AUTO) 0.2 K/uL (0-0.4); EOSINOPHILS % (AUTO) 2.2 % (0.0-4.0); HEMATOCRIT 39.5 % (36-48); HEMOGLOBIN 12.7 g/dL (12.0-16.0); LYMPHOCYTES # (AUTO) 1.4 K/uL (2.5-16.5); MEAN CORPUSCULAR HEMOGLOBIN 31 pg (27-31); MEAN CORPUSCULAR HGB CONC 32 g/dL (33-37); MONOCYTES # (AUTO) 0.5 K/uL (0.8-1.0); MONOCYTES % (AUTO) 6.1 % (1.7-9.3); NEUTROPHILS # (AUTO) 6.5 K/uL (1.8-7.7); NEUTROPHILS % (AUTO) 75.2 % (42.2-75.2); PLATELET COUNT (AUTO) 343 K/uL (140-450); RED BLOOD CELL COUNT(AUTO) 4.11 MIL/uL (4.20-5.40); RED CELL DISTRIBUTION WIDTH 15.4 % (11.6-13.7); WHITE BLOOD COUNT (AUTO) 8.7 K/uL (4.8-10.8)
[2021-04-05 19:05] LABS: ANION GAP 13.1 (8-16); CARBON DIOXIDE 31.2 mmol/L (21-32); CHLORIDE 102 mmol/L (98-107); CREATININE 1.4 mg/dL (0.6-1.3); GLUCOSE 146 mg/dL (74-106); POTASSIUM 4.3 mmol/L (3.5-5.1); SODIUM SERUM 142 mmol/L (136-145); UREA NITROGEN, BLOOD 29 mg/dL (7-18)
--- NOTE | 2021-04-05 19:05 | NUR ---
GAVE CHANGE OF SHIFT REPORT TO NIGHT NURSE AT BEDSIDE FOR CONTINUITY OF CARE. PT IS AWAKE AND DENIES PAIN OR DISCOMFORT. PT IS STABLE. DISCUSSED POC. SAFETY MEASURES IN PLACE.
--- NOTE | 2021-04-05 19:06 | NUR ---
RECEIVED BEDSIDE REPORT FROM DAY RN. PT IS RESTING COMFORTABLY IN BED. PT IS AAOX4. RESPIRATIONS ARE EQUAL AND UNLABORED ON 3L NC SAT WELL. C/C SOB DX RESP FAILURE. IV ON LAC 20G SL. SKIN IS WARM, DRY AND INTACT. PT IS AMBULATORY WITH ASSIST. POC REVIEWED WITH PATIENT. CALL LIGHT IS WITHIN REACH. WILL CONTINUE TO MONITOR.
[2021-04-05] MEDS: ALBUTEROL SULFATE/IPRATROPIU 3 ML SOL IH SCH (19:12)
[2021-04-05 20:00] VITALS: BP 128/74
[2021-04-05] MEDS ORDERED: CRUSHER, PILL MC ONE (20:02)
[2021-04-05] MEDS: methylPREDNISolone SS 40 MG/ML VIAL IVP SCH (20:07)
[2021-04-05] MEDS: hydrOXYzine PAMOATE 25 MG CAP PO SCH (20:07)
[2021-04-05] MEDS: traZODone 50 MG TAB PO SCH (20:07)
--- NOTE | 2021-04-05 20:07 | NUR ---
VITAL SIGNS ARE WITHIN NORMAL LIMITS. RASHAD MEDICATIONS GIVEN PER ORDERS. MED EDUCATION GIVEN. GAVE PATIENT JUICE PER REQUEST. ALL NEEDS MET. CALL LIGHT IS WITHIN REACH.
[2021-04-05] MEDS ORDERED: lamoTRIgine 25 MG TAB PO SCH (21:00)
--- NOTE | 2021-04-05 22:00 | NUR ---
ROUNDS MADE .PT LAYING IN BED, APPEARS TO BE ASLEEP. CHEST RISE AND FALL NOTED. CALL LIGHT WITHIN REACH.
[2021-04-06] VITALS: BP 149/73
--- NOTE | 2021-04-06 00:26 | NUR ---
VITAL SIGNS ARE STABLE. PT RESTING IN BED COMFORTABLY. CALL LIGHT WITHIN REACH.
--- NOTE | 2021-04-06 02:09 | NUR ---
PT ASLEEP IN BED. CALL LIGHT WITHIN REACH.
--- NOTE | 2021-04-06 03:31 | NUR ---
pt sleeping with 2L NC spo2 97% no signs of distress noted.
[2021-04-06 04:00] VITALS: BP 154/107
--- NOTE | 2021-04-06 04:00 | NUR ---
VITAL SIGNS ARE STABLE. ASSISTED PT TO THE RESTROOM. PT TOLERATED WELL. ALL NEEDS MET. CALL LIGHT WITHIN REACH.
[2021-04-06 06:49] LABS: BASOPHILS # (AUTO) 0.1 K/uL (0.00-0.22); EOSINOPHILS % (AUTO) 0.1 % (0.0-4.0); HEMATOCRIT 36.7 % (36-48); HEMOGLOBIN 12.1 g/dL (12.0-16.0); LYMPHOCYTES # (AUTO) 0.6 K/uL (2.5-16.5); LYMPHOCYTES % (AUTO) 9.5 % (20.5-51.1); MEAN CORPUSCULAR HEMOGLOBIN 31 pg (27-31); MEAN CORPUSCULAR HGB CONC 33 g/dL (33-37); MONOCYTES # (AUTO) 0.1 K/uL (0.8-1.0); MONOCYTES % (AUTO) 1.3 % (1.7-9.3); NEUTROPHILS # (AUTO) 5.9 K/uL (1.8-7.7); NEUTROPHILS % (AUTO) 88.1 % (42.2-75.2); PLATELET COUNT (AUTO) 295 K/uL (140-450); RED CELL DISTRIBUTION WIDTH 14.8 % (11.6-13.7); WHITE BLOOD COUNT (AUTO) 6.7 K/uL (4.8-10.8)
--- NOTE | 2021-04-06 07:14 | NUR ---
RECEIVED PT SLEEPING, ABLE TO WAKE UP WHEN GREETED, ON O2 AT 2L MIN, O2 SAT 96, SKIN WARM TO TOUCH RESP. EVEN AND UNLABORED, NO SOB, NO EDEMA, PERIPHERAL LINE ON LEFT AC GAUGE 20, [place], PER PT SHE IS JUST WAITING FOR HER OXYGEN CONCENTRATOR WILL FOLLOW UP, CALL LIGHT WITHIN EASY REACH.
--- NOTE | 2021-04-06 07:14 | NUR ---
GAVE BEDSIDE REPORT TO DAY RN. PT ENDORSED IN STABLE CONDITION.
[2021-04-06 07:16] LABS: ANION GAP 13.3 (8-16); CARBON DIOXIDE 28.9 mmol/L (21-32); CHLORIDE 105 mmol/L (98-107); CREATININE 1.2 mg/dL (0.6-1.3); GLUCOSE 160 mg/dL (74-106); POTASSIUM 4.2 mmol/L (3.5-5.1); SODIUM SERUM 143 mmol/L (136-145); UREA NITROGEN, BLOOD 30 mg/dL (7-18)
[2021-04-06] MEDS: ALBUTEROL SULFATE/IPRATROPIU 3 ML SOL IH SCH ×3 (08:02→19:00)
--- NOTE | 2021-04-06 08:16 | NUR ---
PATIENT HAS BEEN SCREENED AND CATEGORIZED MODERATE NUTRITION RISK. PATIENT WILL BE SEEN WITHIN 3-5 DAYS OF ADMISSION. 04/08/21 04/10/[address]
[2021-04-06] MEDS: PANTOPRAZOLE 40 MG INJ VIAL IVP SCH (08:42)
[2021-04-06] MEDS: methylPREDNISolone SS 40 MG/ML VIAL IVP SCH ×2 (08:44→22:05)
[2021-04-06] MEDS: PROPRANOLOL 20 MG TAB PO SCH ×3 (08:48→17:02)
[2021-04-06] MEDS: VITAMIN D 400 IU TAB PO SCH (08:51)
[2021-04-06 08:52] VITALS: BP 156/91
[2021-04-06] MEDS ORDERED: lamoTRIgine 25 MG TAB PO SCH (09:00)
--- NOTE | 2021-04-06 09:04 | NUR ---
PT ATE BREAKFAST WITH GOOD APPETITE. STILL ON O2 AT 2l/MIN. O2 SAT 98%. OFFERED TO AMBULATE. PER PT, LATER. PT ALSO ABLE TO GIVE NUMBER OF OXYGEN COMPANY. WE WILL CALL [phone].
--- NOTE | 2021-04-06 09:14 | NUR ---
TALKED TO ZARIA IN [employer]. [phone]. PER ZARIA, WILL DELIVER OXYGEN ON 04.08.21 AROUND 1030. WILL ENDORSE.
--- NOTE | 2021-04-06 09:46 | NUR ---
DR. BARROSO AT BEDSIDE
[2021-04-06] MEDS ORDERED: guaiFENesin DM 200/20 MG-10 ML 10 ML UDC PO PRN (09:50)
--- NOTE | 2021-04-06 09:52 | NUR ---
PATIENT WALKED TO BATHROOM WITH O2 TANK, NO SHORTNESS OF BREATH, ALERT & ORIENTED W/ EPISODE OF COUGHING, MD AWARE & WILL MEDICATE ORDER
[2021-04-06 12:41] VITALS: BP 135/84
--- NOTE | 2021-04-06 13:00 | NUR ---
RECEIVED REPORT FROM GREGORY THURMAN
--- NOTE | 2021-04-06 15:10 | NUR ---
PT R ESTING IN BED, NO SOB ON 3L O2, NO C/O PAIN
[2021-04-06 16:00] VITALS: BP 132/74
--- NOTE | 2021-04-06 18:26 | NUR ---
PT IN BED, FAMILY AT BEDSIDE. NO C/O PAIN, NO SOB
--- NOTE | 2021-04-06 19:15 | NUR ---
RECD. RESTING IN BED, AWAKE, A/OX4. RESPIRATION EVEN AND UNLABORED. ON 02 AT 2 LITERS VIA N/C, O2 SATURATION AT 96%.LUNGS CLEAR ON BILATERAL AUSCULTATION BUT WITH SOME WHEEZING WITH HAVING UNPRODUCTIVE COUGHING. AMBULATORY TO THE BR. ON IV SOLU-MEDROL. MEDICATIONS FOR THE NIGHT DISCUSSED WITH PATIENT. VERBALIZED UNDERSTANDING. DENIES PAIN 0/10.
[2021-04-06 20:00] VITALS: BP 124/60
[2021-04-06] MEDS: traZODone 50 MG TAB PO SCH (20:56)
--- NOTE | 2021-04-06 20:56 | NUR ---
SCHEDULED MEDICATIONS ADMINISTERED. ADVISED TO ALTERNATELY TURN TO SIDES IN BED.
[2021-04-06] MEDS: hydrOXYzine PAMOATE 25 MG CAP PO SCH (20:57)
--- NOTE | 2021-04-06 22:00 | NUR ---
ASSISTED TO GO TO WITH PORTABLE 02 TANK. BACK TO BED AFTER VOIDING.
[2021-04-07] VITALS: BP 156/74
--- NOTE | 2021-04-07 | NUR ---
SLEEPING COMFORTABLY IN BED, SINUS RHYTHM ON TELE MONITORING.
--- NOTE | 2021-04-07 02:00 | NUR ---
ASSISTED TO BR TO VOID, WITH PORTABLE 02 TANK AT 2 LITERS N/C.
[2021-04-07 04:00] VITALS: BP 130/76
--- NOTE | 2021-04-07 04:00 | NUR ---
HR - 63. SINUS RHYTHM/SINUS ARRHYTHMIA ON TELE MONITORING.
[2021-04-07 05:32] LABS: BASOPHILS % (AUTO) 0.4 % (0.0-2.0); HEMATOCRIT 36.5 % (36-48); HEMOGLOBIN 11.8 g/dL (12.0-16.0); LYMPHOCYTES # (AUTO) 0.8 K/uL (2.5-16.5); MEAN CORPUSCULAR HEMOGLOBIN 31 pg (27-31); MEAN CORPUSCULAR HGB CONC 33 g/dL (33-37); MEAN CORPUSCULAR VOLUME 95.7 fL (80-94); MONOCYTES # (AUTO) 0.2 K/uL (0.8-1.0); MONOCYTES % (AUTO) 2.4 % (1.7-9.3); NEUTROPHILS # (AUTO) 8.5 K/uL (1.8-7.7); PLATELET COUNT (AUTO) 298 K/uL (140-450); RED BLOOD CELL COUNT(AUTO) 3.81 MIL/uL (4.20-5.40); RED CELL DISTRIBUTION WIDTH 14.8 % (11.6-13.7); WHITE BLOOD COUNT (AUTO) 9.6 K/uL (4.8-10.8)
--- NOTE | 2021-04-07 06:00 | NUR ---
NO RESPIRATORY DISTRESS NOTED DURING THE SHIFT.
[2021-04-07 06:41] LABS: ANION GAP 11.8 (8-16); CARBON DIOXIDE 30.7 mmol/L (21-32); CHLORIDE 103 mmol/L (98-107); CREATININE 1.2 mg/dL (0.6-1.3); GLUCOSE 162 mg/dL (74-106); POTASSIUM 4.5 mmol/L (3.5-5.1); SODIUM SERUM 141 mmol/L (136-145); UREA NITROGEN, BLOOD 27 mg/dL (7-18)
[2021-04-07 06:55] LABS: LYMPHOCYTES % (AUTO) 7.8 % (20.5-51.1); NEUTROPHILS % (AUTO) 89.4 % (42.2-75.2)
--- NOTE | 2021-04-07 07:15 | NUR ---
RECEIVED CHANGE OF SHIFT REPORT FROM NIGHT NURSE AT BEDSIDE FOR CONTINUITY OF CARE. REVIEWED AND WILL CONTINUE WITH POC. PT IS AA&OX4 AND AMBULATORY WITH STEADY GAIT. SAFETY PRECAUTIONS IN PLACE. SKIN WARM, DRY AND INTACT. PT HAS RAC 20G IV. PT WAS ON 2L O2, RT WANTS TO WEAN OFF O2. PT CURRENTLY ON RA TOLERATING WELL. WILL CONTINUE TO MONITOR.
[2021-04-07] MEDS: ALBUTEROL SULFATE/IPRATROPIU 3 ML SOL IH SCH ×3 (07:20→20:35)
--- NOTE | 2021-04-07 07:20 | NUR ---
CONDITION REMAIN STABLE. ENDORSED TO AM SHIFT NURSE FOR CONTINUITY OF CARE.
[2021-04-07 08:00] VITALS: BP 108/53
--- NOTE | 2021-04-07 08:36 | NUR ---
Patient's Plan of Care was discussed and reviewed with DANIELA: Lizbeth
[2021-04-07] MEDS: PROPRANOLOL 20 MG TAB PO SCH ×3 (09:16→16:30)
[2021-04-07] MEDS: methylPREDNISolone SS 40 MG/ML VIAL IVP SCH ×2 (09:17→21:18)
[2021-04-07] MEDS: VITAMIN D 400 IU TAB PO SCH (09:17)
[2021-04-07] MEDS: PANTOPRAZOLE 40 MG INJ VIAL IVP SCH (09:17)
--- NOTE | 2021-04-07 09:30 | NUR ---
TP CONDITION IS STABLE. SCHEDULED MEDICATIONS ADMINISTERED. PT TOLERATED WELL. PT DENIES PAIN OR DISCOMFORT AT THIS TIME. WILL CONTINUE TO MONITOR.
--- NOTE | 2021-04-07 11:26 | NUR ---
PT IS AWAKE AND HAS FAMILY AT BEDSIDE. PT DENIES PAIN OR DISCOMFORT AT THIS TIME. O2 HAS BEEN REMOVED BY RT AND PT TOLERATING WELL. O2 SATURATION IS 94%. WILL CONTINUE TO MONITOR.
[2021-04-07 12:00] VITALS: BP 121/57
--- NOTE | 2021-04-07 13:00 | NUR ---
PT IS AWAKE AND EATING LUNCH. PT STATES THE MEAT IS HARD TO CHEW HOWEVER, SHE IS GOING TO EAT THE OTHER FOOD PROVIDED. WILL CONTINUE TO MONITOR PT CONDITION.
--- NOTE | 2021-04-07 13:23 | NUR ---
PATIENT HAS BEEN SATURATING WELL ON 2 LITERS NASAL CANNULA SO PATIENT WAS REMOVED FROM OXYGEN TO SEE IF PATIENT COULD TOLERATE OFF OXYGEN. PATIENT'S SATURATIONS REMAINED IN THE LOW 90S ON ROOM AIR. INFORMED PATIENT, FAMILY MEMBER, AND RN THAT PATIENT WAS NOW OFF OXYGEN AND TOLERATING AT THIS TIME. PATIENT DOING WELL AT THIS TIME.
--- NOTE | 2021-04-07 15:00 | NUR ---
PT IS AWAKE AND WATCHING TV. PT IS STABLE. NOT COMPLAINTS OF PAIN OR DISCOMFORT. WILL CONTINUE TO MONITOR.
[2021-04-07 16:00] VITALS: BP 116/56
--- NOTE | 2021-04-07 17:00 | NUR ---
PT IS STABLE. CURRENTLY AWAKE USING CELL PHONE TO TALK WITH FAMILY. PT DENIES PAIN OR DISCOMFORT. PT TOLERATING WITHOUT O2 WELL. WILL CONTINUE TO PERFORM FREQ ROUNDING.
--- NOTE | 2021-04-07 19:36 | NUR ---
GAVE CHANGE OF SHIFT REPORT TO NIGHT NURSE AT BEDSIDE FOR CONTINUITY OF CARE. PT CONDITION IS STABLE. POC DISCUSSED.
[2021-04-07 20:00] VITALS: BP 112/61
[2021-04-07] MEDS: hydrOXYzine PAMOATE 25 MG CAP PO SCH (21:18)
[2021-04-07] MEDS: traZODone 50 MG TAB PO SCH (21:19)
[2021-04-08] VITALS: BP 156/61
[2021-04-08 04:00] VITALS: BP 179/80
[2021-04-08 05:24] VITALS: BP 161/80
[2021-04-08 06:27] LABS: BASOPHILS % (AUTO) 0.2 % (0.0-2.0); HEMATOCRIT 39.7 % (36-48); HEMOGLOBIN 12.9 g/dL (12.0-16.0); LYMPHOCYTES # (AUTO) 0.8 K/uL (2.5-16.5); LYMPHOCYTES % (AUTO) 9.7 % (20.5-51.1); MEAN CORPUSCULAR HEMOGLOBIN 31 pg (27-31); MEAN CORPUSCULAR HGB CONC 32 g/dL (33-37); MEAN CORPUSCULAR VOLUME 95.9 fL (80-94); MONOCYTES # (AUTO) 0.2 K/uL (0.8-1.0); NEUTROPHILS # (AUTO) 7.7 K/uL (1.8-7.7); NEUTROPHILS % (AUTO) 88.1 % (42.2-75.2); PLATELET COUNT (AUTO) 363 K/uL (140-450); RED BLOOD CELL COUNT(AUTO) 4.14 MIL/uL (4.20-5.40); RED CELL DISTRIBUTION WIDTH 14.8 % (11.6-13.7); WHITE BLOOD COUNT (AUTO) 8.7 K/uL (4.8-10.8)
[2021-04-08 06:37] LABS: ANION GAP 13.3 (8-16); CARBON DIOXIDE 30.3 mmol/L (21-32); CHLORIDE 102 mmol/L (98-107); CREATININE 1.4 mg/dL (0.6-1.3); GLUCOSE 164 mg/dL (74-106); POTASSIUM 4.6 mmol/L (3.5-5.1); SODIUM SERUM 141 mmol/L (136-145); UREA NITROGEN, BLOOD 25 mg/dL (7-18)
--- NOTE | 2021-04-08 06:54 | NUR ---
Assumed care last night. At the time pt was laying down in bed quietly. In no acute distress respiratory or otherwise. She remains on room air and sating 94% as of 4 O'clock. Denied pain. Able to ambulate to the restroom by self. Gait is steady. Will endorse care to AM RN.
--- NOTE | 2021-04-08 07:24 | NUR ---
PT HAS BEEN ENDORSED BY RADIOLOGIC TECHNICIAN NURSE, LAVONNE, FOR CONTINUITY OF CARE. POC DISCUSSED. PT IS ASLEEP IN BED WITH CHEST RISING AND FALLING EVEN AND UNLABORED. NO S/S OF ACUTE DISTRESS. PT ON TELE MONITOR SHOWING SINUS RHYTHM OF 66. PT SKIN INTACT WITH A 20 G LEFT AC SALINE LOCK. ALL SAFETY MEASURES IN PLACE, CALL LIGHT WITHIN REACH. WILL CONTINUE TO MONITOR.
--- NOTE | 2021-04-08 07:41 | NUR ---
PATIENT SLEEPING, TX NOT GIVEN
[2021-04-08 08:00] VITALS: BP 159/95
[2021-04-08] MEDS: VITAMIN D 400 IU TAB PO SCH (08:22)
[2021-04-08] MEDS: PANTOPRAZOLE 40 MG INJ VIAL IVP SCH (08:22)
[2021-04-08] MEDS: methylPREDNISolone SS 40 MG/ML VIAL IVP SCH (08:22)
[2021-04-08] MEDS: PROPRANOLOL 20 MG TAB PO SCH ×2 (08:22→12:24)
--- NOTE | 2021-04-08 08:30 | NUR ---
RASHAD MEDICATION ADMINISTERED PER MD ORDER. PT TOLERATED ADMINISTRATION. PT EDUCATION PROVIDED. PT VERBALIZED UNDERSTANDING. DISCUSSED POC. PT VERBALIZED UNDERSTANDING. PT IS SITTING UP IN BED WITH NO ACUTE SOB, AND DECLINES ANY PAIN OR SOB. PT IS EATING BREAKFAST. PT IV IS PATENT AND INTACT. WHITE BOARD UPDATED. PT REPORTS ALL NEEDS ARE MET AT THIS TIME. ALL SAFETY MEASURES IN PLACE, CALL LIGHT WITHIN REACH. WILL CONTINUE TO MONITOR.
--- NOTE | 2021-04-08 09:52 | NUR ---
ROUNDED ON PT, PT IS RESTING IN BED WITH NO ACUTE S/S OF DISTRESS. PT IS ON ROOM AIR WITH CHEST RISING AND FALLING EVEN AND UNLABORED SATURATING AT 96%. PT ON TELE MONITOR SHOWING 81 SR. ALL SAFETY MEASURES IN PLACE, CALL LIGHT WITHIN REACH. WILL CONTINUE TO MONITOR.
--- NOTE | 2021-04-08 11:02 | NUR ---
ATTEMPTED TO CALL [employer] COMPUTED TOMOGRAPHY SCANNER OPERATOR, TO DISCUSS PTS ARRANGEMENT FOR HOME O2. UNABLE TO REACH CM, LEFT VOICEMAIL. WILL FOLLOW UP.
[2021-04-08 12:00] VITALS: BP 165/80
--- NOTE | 2021-04-08 12:27 | NUR ---
RASHAD MEDICATION ADMINISTERED PER MD ORDER. EDUCATION PROVIDED. PT VERBALIZED UNDERSTANDING. PT TOLERATED ADMINISTRATION. PT SITTING AT SIDE OF BED EATING LUNCH. NO SOB NOTED. PT EDUCATED ON PLAN OF CARE AND DISCHARGE INSTRUCTIONS. PT VERBALIZED UNDERSTANDING, ALL QUESTIONS ANSWERED. ALL SAFETY MEASURES IN PLACE, CALL LIGHT WITHIN REACH. WILL CONTINUE TO MONITOR.
--- NOTE | 2021-04-08 12:37 | NUR ---
DC PLANNING: CM MET WITH THE PATIENT AT BEDSIDE, CONFIRMED HER ADDRESS AND PHONE NUMBER PER HER FACE SHEET. THE PATIENT LIVES IN A SINGLE STORY HOUSE WITH HER GRANDDAUGHTER AND GRANDSON. STATES THAT SHE HAS PORTABLE O2 THROUGH, CM ENDORSED THAT PER DOCUMENTATION THE COMPANY IS [facility], CM HAS BEEN CALLING THE NUMBER DOCUMENTED ([phone]), LINE IS BUSY OR DOESN'T ANSWER. THE PATIENT EXPLAINED THAT SHE BOUGHT THIS PORTABLE UNIT OUT OF POCKET, NO PRESCRIPTION OR INSURANCE COVERAGE. SHE STATES THAT SHE WAS ON HOSPICE AND THAT SHE SIGNED ON WITH HOSPICE BECAUSE SHE THOUGHT IT WOULD BE A GOOD IDEA TO HAVE A CAREGIVER AND ASSISTANCE WITH CARE, AND DME. THE COMPANY PROVIDED O2 BUT SHE REVOKED HOSPICE AND THEY TOOK THE O2 WHICH IS WHEN SHE DECIDED TO BUY THIS UNIT BASED ON A FRIENDS RECOMMENDATION. UNCLEAR IF SHE HAS HAD HOME HEALTH IN THE PAST AND SHE DOESN'T KNOW THE NAME OF THE HOSPICE AGENCY STATING THAT IT WAS [employer] AND THAT SHE CALLED THEM AFTER SHE RECEIVED A FLYER IN THE MAIL. PATIENT STATES SHE HAS OTHER DME OF FWW, CANE AND WC BUT IS AMBLE TO AMBULATE WITHOUT ASSISTANCE. SHE DOES NEED SOME ASSISTANCE WITH BATHING HER LE'S BUT IS ABLE TO INDEPENDENTLY DRESS. ZAK SPOKE WITH HER GRANDDAUGHTER JHOAN TO CONFIRM THAT THE NEW PORTABLE O2 UNIT WAS DELIVERED TO THE HOUSE AND THAT SHE WILL COME AT 1:30 TO TAKE THE PATIENT HOME. CM ENDORSED THIS TO THE PATIENTS SABI SOLOMON. ZAK WILL FOLLOW FOR NEEDS.
--- NOTE | 2021-04-08 12:37 | NUR ---
SPOKE WITH ROUTE DELIVERY MANAGER, OXYGEN HAS BEEN DELIVERED TO HOME PER GRANDDAUGHTER. GRANDDAUGHTER WILL PICK PATIENT UP AT 1330.
--- NOTE | 2021-04-08 12:59 | NUR ---
DISCHARGE EDUCATION PROVIDED TO PT. EDUCATION REGARDING HOME OXYGEN NEEDED, O2 WAS DELIVERED TO THE HOME PER GRANDDAUGHTER, TAKE MEDICATION PRESCRIBED, FOLLOW UP WITH PRIMARY CARE PHYSICIAN, AVOID CROWDS, RETURN TO ER FOR WORSENING SYMPTOMS. PT VERBALIZED UNDERSTANDING. ALL QUESTIONS ANSWERED. PT SIGNED DISCHARGE PAPERWORK. ALL BELONGINGS TOGETHER. INFORMED PT OF GRANDDAUGHTERS LATH TIER TIME AT 1330. PT IS STABLE.
[2021-04-08] MEDS: ALBUTEROL SULFATE/IPRATROPIU 3 ML SOL IH SCH (13:01)
--- NOTE | 2021-04-08 13:57 | NUR ---
GRANDDAUGHTER HERE TO PICK PT UP. PT IV AND ID BAND REMOVED. PT HAS ALL BELONGINGS. PT IS STABLE. PT WHEELCHAIRED OUT AND ASSISTED IN CAR WITH GRANDDAUGHTER. TELE BOX REMOVED AND RETURNED TO TELEMONITOR.
== END 2021-04-08 14:00 | disposition home or self-care (01) | DRG 189 ==
LOC: MED 09:45 → MTU 14:09
PROVIDERS: ADMIT Hospitalist; ATTEND Hospitalist
DX: J96.01 Acute respiratory failure with hypoxia (principal); J44.1 Chronic obstructive pulmonary disease with (acute) exacerbation; I10 Essential (primary) hypertension; E78.5 Hyperlipidemia, unspecified; F41.9 Anxiety disorder, unspecified; F20.9 Schizophrenia, unspecified; Z79.899 Other long term (current) drug therapy; Z86.16 Personal history of COVID-19; Z86.73 Personal history of transient ischemic attack (TIA), and cerebral infarction without residual deficits; Z88.6 Allergy status to analgesic agent; Z88.8 Allergy status to other drugs, medicaments and biological substances; Z99.81 Dependence on supplemental oxygen; Z87.891 Personal history of nicotine dependence
CPT/HCPCS: 36415; 71045; 80048; 82948; 85025; 94640; 97163-GP; 99285; C9113; J1815; J2920; Q0092; Q0177

== ENCOUNTER 2022-03-08 05:23 | Inpatient (IN) | payer MEDICARE, OTHER ==
[2022-03-08] VITALS (21 sets, daily range): BP systolic 83–124; BP diastolic 41–72
[~2022-03-08] VITALS: Ht 165.1 cm; Wt 93.5 kg
[~2022-03-08 05:23] MED LIST changes: -LACT-103 PO; +PANT40EC PO; -PRAM0.5T4 PO
--- NOTE | 2022-03-08 05:23 | NUR ---
9252---THI DICKSON TAKEN TO BED #3
[2022-03-08] MEDS ORDERED: INTUBATION KIT MC ONE (05:25)
[2022-03-08] MEDS ORDERED: PROPOFOL 200 MG/20 ML VIAL IV ONE (05:40)
[2022-03-08] MEDS ORDERED: NACL 0.9% 1,000 ML IV ONE (05:40)
[2022-03-08] MEDS ORDERED: LEVOFLOXACIN 500 MG/D5W PREMIX 100 ML IV ONE (05:40)
[2022-03-08] MEDS ORDERED: PIPERACILLIN/TAZOBACTAM 3.375 GM in DEXTROSE 5% 50 ML IV ONE (05:40)
[2022-03-08] MEDS ORDERED: PROPOFOL 1000 MG/100 ML PREMIX 100 ML IV ONE (05:43)
--- NOTE | 2022-03-08 05:58 | NUR ---
0530 PATIENT BIBA IN RESPIRATORY DISTRESS. INTUBATED PT WITH TUBE SIZE 7.5 AT 23LIP SXNED PT FOR SPUTUM SAMPLE AND SENT IT TO LAB.
[2022-03-08] MEDS ORDERED: PIPERACILLIN/TAZOBACTAM 3.375 GM in DEXTROSE 5% 50 ML IV SCH ×2 (06:00→09:00)
--- NOTE | 2022-03-08 06:00 | NUR ---
CENTRAL LINE PLACED BY ERMD
--- NOTE | 2022-03-08 06:20 | NUR ---
PLACED 14 KYRGYZ OG TUBE WITH LUBE AND WITH MEASUREMENT. PATIENT TOLERATED WELL. PLACEMENT VIA XR AND AUSCULTATION.
[2022-03-08] MEDS ORDERED: VANCOMYCIN 1GM/DEXT 5% PREMIX 200 ML IV SCH (06:30)
--- NOTE | 2022-03-08 06:31 | NUR ---
RT AT BED SIDE
[2022-03-08] MEDS: PROPOFOL 1000 MG/100 ML PREMIX 100 ML IV PRN ×4 (06:35→22:27)
[2022-03-08] MEDS ORDERED: NOREPINEPHRINE 8 MG in DEXTROSE 5% 250 ML IV PRN (06:50)
--- NOTE | 2022-03-08 07:20 | NUR ---
RECEIVED REPORT FROM STANTON CELESTIN, TRANSFER OF CARE AT THIS TIME, RECEIVED PT IN BED HOB AT 45% [facility], CENTRAL LINE IN LEFT JUGULAR, PROPOFOL RUNNING AT 35MCG, LEVOPHED 8 RUNNING AT 8MCG/MIN. NOTED BUCKING THE VENT. 20G R AC IN PLACE
[2022-03-08] MEDS ORDERED: LORazepam 2 MG/ML VIAL IVP PRN (07:35)
[2022-03-08] MEDS ORDERED: MORPHINE SULFATE 2 MG/ML SYR IVP PRN (07:35)
[2022-03-08] MEDS ORDERED: ZOLPIDEM 5 MG TAB PO PRN (07:35)
[2022-03-08] MEDS ORDERED: DOCUSATE SODIUM 100 MG GELCAP PO PRN (07:35)
[2022-03-08] MEDS ORDERED: ACETAMINOPHEN 325 MG TAB PO PRN (07:35)
[2022-03-08] MEDS ORDERED: MAG SULF 2000 MG/WATER PREMIX 50 ML IV PRN (07:35)
[2022-03-08] MEDS ORDERED: ONDANSETRON 4 MG/2 ML VIAL IVP PRN (07:35)
[2022-03-08] MEDS ORDERED: POTASSIUM CHLORIDE 10 MEQ TABER PO PRN (07:35)
[2022-03-08 07:40] LABS: BASOPHILS % (AUTO) 0.1 % (0.0-2.0); EOSINOPHILS # (AUTO) 0.2 K/uL (0-0.4); EOSINOPHILS % (AUTO) 1.1 % (0.0-4.0); HEMATOCRIT 36.6 % (36-48); HEMOGLOBIN 11.7 g/dL (12.0-16.0); LYMPHOCYTES # (AUTO) 1.8 K/uL (2.5-16.5); LYMPHOCYTES % (AUTO) 10.6 % (20.5-51.1); MEAN CORPUSCULAR HEMOGLOBIN 30 pg (27-31); MEAN CORPUSCULAR HGB CONC 32 g/dL (33-37); MEAN CORPUSCULAR VOLUME 92.9 fL (80-94); MONOCYTES # (AUTO) 0.4 K/uL (0.8-1.0); MONOCYTES % (AUTO) 2.6 % (1.7-9.3); NEUTROPHILS # (AUTO) 14.6 K/uL (1.8-7.7); NEUTROPHILS % (AUTO) 85.6 % (42.2-75.2); PLATELET COUNT (AUTO) 451 K/uL (140-450); RED BLOOD CELL COUNT(AUTO) 3.94 MIL/uL (4.20-5.40); RED CELL DISTRIBUTION WIDTH 15.6 % (11.6-13.7)
[2022-03-08 07:54] LABS: PROTHROMBIN TIME 9.9 secs (10.8-13.4)
[2022-03-08] MEDS ORDERED: PRAV40TA3 PO (07:59)
[2022-03-08] MEDS ORDERED: [UNRECOGNIZED DRUG - CODE] MM (07:59)
[2022-03-08] MEDS ORDERED: HYDR25CA1 PO (07:59)
[2022-03-08] MEDS ORDERED: PRAM0.5T4 PO (07:59)
[2022-03-08 08:05] LABS: ANION GAP 14.1 (8-16); ASPARTATE AMINOTRANSFERASE 19 U/L (15-37); CARBON DIOXIDE 32.2 mmol/L (21-32); CHLORIDE 100 mmol/L (98-107); CREATININE 1.5 mg/dL (0.6-1.3); GLUCOSE 185 mg/dL (74-106); POTASSIUM 3.3 mmol/L (3.5-5.1); SODIUM SERUM 143 mmol/L (136-145); TOTAL BILIRUBIN 0.3 mg/dL (0.0-1.0); UREA NITROGEN, BLOOD 20 mg/dL (7-18)
--- NOTE | 2022-03-08 08:10 | NUR ---
# 16 FR Salazar catheter with 10 ml utilizing sterile technique. Immediate return of 250 ml CLEAR YELLOW urine noted. Bedside drainage bag placed below level of bladder. Urine sample collected and sent to lab. Pt tolerated procedure WELL.
[2022-03-08 08:21] LABS: APPEARANCE,URINE CLEAR (CLEAR); BILIRUBIN,URINE NEGATIVE (NEGATIVE); BLOOD, URINE TRACE-I (NEGATIVE); COLOR,URINE YELLOW (YELLOW); LEUKOCYTE ESTERASE ,URINE NEGATIVE (NEGATIVE); NITRITE, URINE NEGATIVE (NEGATIVE); UGLUCOSE NEGATIVE (NEGATIVE)
[2022-03-08 08:28] LABS: CALCIUM OXALATE CRYSTALS,UR None Seen /HPF (None Seen); COARSE GRANULAR CASTS,URINE None Seen /LPF (None Seen); FINE GRANULAR CASTS,URINE None Seen /LPF (None Seen); HYALINE CASTS, URINE None Seen /LPF (None Seen); OTHER CASTS, URINE None Seen /LPF (None Seen); OTHER CRYSTALS,URINE None Seen /HPF (None Seen); RBC,URINE 0-5 /HPF (0-5); RED BLOOD CELL CASTS,URINE None Seen /LPF (None Seen); TRICHOMONAS,URINE None Seen /HPF (None Seen); TRIPLE PHOSPHATE CRYSTAL,UR None Seen /HPF (None Seen); URIC ACID CRYSTALS,URINE None Seen /HPF (None Seen); URINE AMORPHOUS URATE None Seen /HPF (None Seen); WAXY CASTS,URINE None Seen /LPF (None Seen); YEAST,URINE None Seen /HPF (None Seen)
[2022-03-08 08:29] LABS: WBC,URINE 0-5 /HPF (0-5)
[2022-03-08] MEDS ORDERED: ACETAMINOPHEN 650 MG SUPP RC SCH (08:33)
--- NOTE | 2022-03-08 08:35 | NUR ---
RECTAL TEMP 100.4. DR STALLINGS AT BEDSIDE. RECEIVED VERBAL ORDER OF 650MG TYLENOL RECTAL. ALSO INFORMED HER AT ER DOC ORDERED LEVOFLOXACIN BUT NEVER ADMINISTERED. SHE STATED TO NOT GIVE.
--- NOTE | 2022-03-08 08:39 | NUR ---
SPOKE WITH PTS GRANDDAUGHTER JHOAN AT 0751. UPDATED HER ON PTS STATUS. CONTACT NUMBER: [phone] STALLINGS TO UPDATE FAMILY.
[2022-03-08] MEDS: NACL 0.9% 1,000 ML IV SCH ×3 (08:44→22:55)
[2022-03-08] MEDS ORDERED: VANCOMYCIN PER PHARMACY MC SCH (09:00)
--- NOTE | 2022-03-08 09:05 | NUR ---
Patient will be admitted to care of DR HAMPTON. Admited to ICU. Will go to room ICU 1 Belongings list completed. Report to NETTA CELESTIN.
--- NOTE | 2022-03-08 09:15 | NUR ---
Received report from Анна. Pt sedated. ET tube to vent settings AC VC TV 450 rate 16 PEEP 5 and FiO2 100%. Sinus rhythm on monitor. OG-tube clamped. Salazar catheter intact and draining to gravity. Central line on left subclavian intact and patent infusing propofol @40 mcg/kg/min and levophed @ 8mcg/min. Peripheral IV right AC 20 gauge saline locked. Peripheral IV 24 gauge on left foot saline locked. Safety precautions in place.
--- NOTE | 2022-03-08 09:20 | NUR ---
Vancomycin not given due to received report that first dose of vanco given in ER.
[2022-03-08] MEDS: PANTOPRAZOLE 40 MG INJ VIAL IVP SCH (09:57)
[2022-03-08] MEDS ORDERED: KCL 20 MEQ/WATER INJ PREMIX 200 ML IV ONE (10:15)
--- NOTE | 2022-03-08 13:00 | NUR ---
Katia dixon in place.
--- NOTE | 2022-03-08 13:00 | NUR ---
PATIENT HAS BEEN SCREENED AND CATEGORIZED HIGH NUTRITION RISK. PATIENT WILL BE SEEN WITHIN 1-2 DAYS OF ADMISSION. / [address]
--- NOTE | 2022-03-08 13:44 | NUR ---
Seen and examined by Dr. Ybarra. New orders received.
[2022-03-08] MEDS ORDERED: LACTATED RINGERS 1,000 ML IV SCH (13:45)
--- NOTE | 2022-03-08 13:55 | NUR ---
Dr. Ybarra at bedside performing bronchoscopy with RT assisting.
--- NOTE | 2022-03-08 13:55 | NUR ---
ASSISTED BRONCHOSCOPY WITH DR. CORDOVA W/ NO COMPLICATIONS. RIGHT MIDDLE LOBE SPUTUM SAMPLE OBTAINED AND SENT TO LAB. PT WAS RETURNED TO PREVIOUS VENT SETTINGS POST PROCEDURE.
[2022-03-08] MEDS: NOREPINEPHRINE 8 MG in DEXTROSE 5% 250 ML IV PRN (15:03)
[2022-03-08] MEDS: LEVOFLOXACIN 500 MG/D5W PREMIX 100 ML IV SCH (15:59)
--- NOTE | 2022-03-08 16:40 | NUR ---
Seen and examined by Dr. Nieves.
--- NOTE | 2022-03-08 19:30 | NUR ---
Endorsed to xerox machine assembler nurse Iris for continuity of care.
[2022-03-08] MEDS: CLINDAMYCIN 600 MG in DEXTROSE 5% 50 ML IV SCH (21:00)
[2022-03-08] MEDS ORDERED: CLINDAMYCIN 600 MG/4 ML VIAL ONE ×2 (22:53→23:00)
[2022-03-09] VITALS (23 sets, daily range): BP systolic 85–137; BP diastolic 39–81
--- NOTE | 2022-03-09 00:35 | NUR ---
PATIENT SEDATED ON PROPOFOL 38 MCG, LEVOPHED 16 MCG, NS 100 HOUR. PATIENT HAS A O.G.T TO LOW INTERMITTENT SUCTION. B/P 107/57. TEMP. 99.9 PATIENT HAS LEFT SUBCLAVIAN TRIPLE LUMEN PATIENT ON MONITOR SINUS. HAS ET-TUBE RATE 16, TV 450, FI02 100% PEEP 5. SAT 99%. PATIENT HAS F/C DRAINING YELLOW URINE F/C PUT IN 03/08/22. PATIENT HAS RASH ON BACK NO DISTRESS NOTED.
[2022-03-09] MEDS: NACL 0.9% 1,000 ML IV SCH ×3 (02:00→23:00)
[2022-03-09] MEDS: PROPOFOL 1000 MG/100 ML PREMIX 100 ML IV PRN ×5 (03:32→21:24)
[2022-03-09] MEDS: NOREPINEPHRINE 8 MG in DEXTROSE 5% 250 ML IV PRN ×2 (03:37→14:36)
[2022-03-09] MEDS: CLINDAMYCIN 600 MG in DEXTROSE 5% 50 ML IV SCH ×3 (05:00→21:20)
[2022-03-09] MEDS ORDERED: CLINDAMYCIN 600 MG/4 ML VIAL ONE (05:35)
[2022-03-09 05:58] LABS: HEMATOCRIT 33.9 % (36-48); HEMOGLOBIN 10.8 g/dL (12.0-16.0); MEAN CORPUSCULAR HEMOGLOBIN 29 pg (27-31); MEAN CORPUSCULAR HGB CONC 32 g/dL (33-37); MEAN CORPUSCULAR VOLUME 91.9 fL (80-94); PLATELET COUNT (AUTO) 376 K/uL (140-450); RED BLOOD CELL COUNT(AUTO) 3.69 MIL/uL (4.20-5.40); RED CELL DISTRIBUTION WIDTH 15.7 % (11.6-13.7); WHITE BLOOD COUNT (AUTO) 20.1 K/uL (4.8-10.8)
[2022-03-09 06:45] LABS: ANION GAP 11.4 (8-16); CARBON DIOXIDE 29.9 mmol/L (21-32); CHLORIDE 104 mmol/L (98-107); CREATININE 1.2 mg/dL (0.6-1.3); GLUCOSE 154 mg/dL (74-106); POTASSIUM 3.3 mmol/L (3.5-5.1); SODIUM SERUM 142 mmol/L (136-145); UREA NITROGEN, BLOOD 16 mg/dL (7-18)
--- NOTE | 2022-03-09 07:05 | NUR ---
PT RECEIVED FROM [facility] RT, PT SEEN ON STATED SETTINGS, NOT IN ANY RESPIRATORY DISTRESS, FLOW WAS ADJUSTED TO PROLONG THE PATIENTS EXPIRATORY TIME FROM 1:2 TO 1:3 TO HELP PREVENT AIR TRAPPING AND FLOW STARVATION.
--- NOTE | 2022-03-09 07:30 | NUR ---
Assumed care of pt. Pt is in bed resting with no s/s of distress. Upon inspection pt is noted with slight rashes in different areas of body. Pt has a OG tube placed 14F on low intermittent suction. Pt also on vent with FiO2 at 35% and PEEP of 5, tube size is 7.5 @ 23 lip. There is a left subclavian triple lumen central line in place that is intact. 16F joseph intact as well and had 900cc urine output last night. There is also a 20G IV on right forearm that is intact, flushed 10cc and no infiltration noted. In central line there was Levophed running at 30ml/hr, NS running at 100ml/hr, and propofol is done. Went to get a new propofol due to pt starting to wake up and initiated at 22.4ml/hr. RT at bedside. LBM was yesterday afternoon according to hima RN. Temp at 99.5F all other vitals stable. Bed in lowest position.
[2022-03-09 07:43] LABS: BASOPHILS % (MANUAL) 0 % (0-2); EOSINOPHILS % (MANUAL) 1 % (0-4); LYMPHOCYTES % (MANUAL) 10 % (20-46); MONOCYTES % (MANUAL) 4 % (5-12)
--- NOTE | 2022-03-09 08:39 | NUR ---
Pulmonogist at bedside and recommended for dietitian consult, titrate pt off levophed and start pt on Vaso.
[2022-03-09] MEDS: PANTOPRAZOLE 40 MG INJ VIAL IVP SCH (08:40)
--- NOTE | 2022-03-09 09:40 | NUR ---
Levo titrated to 24.37ml/hr.
[2022-03-09] MEDS ORDERED: KCL 20 MEQ/WATER INJ PREMIX 200 ML IV ONE (10:10)
--- NOTE | 2022-03-09 10:22 | NUR ---
Vasopressin initiated at 0.01u/min.
[2022-03-09] MEDS: VASOPRESSIN 20 UNITS in NACL 0.9% 250 ML IV SCH ×2 (10:28→23:02)
--- NOTE | 2022-03-09 12:00 | NUR ---
Cleaned pt and provided new linen. Repositioned pt as well.
--- NOTE | 2022-03-09 13:40 | NUR ---
Norepinephrine completed and pt on vasopressin running at 0.04u/min and BP is at 78/54. Called pharmacy to bring levophed for pt.
--- NOTE | 2022-03-09 14:00 | NUR ---
Pharmacy brought norepinephrine medication. Initiated at 4mcg/min. Vassopressin lowered to 0.03mcg/min.
--- NOTE | 2022-03-09 15:07 | NUR ---
Oral care provided to pt and moisturizer placed on lips to prevent dryness.
[2022-03-09] MEDS: LEVOFLOXACIN 500 MG/D5W PREMIX 100 ML IV SCH (15:22)
--- NOTE | 2022-03-09 17:45 | NUR ---
I/E RATIO ADJUSTED TO 1:3.5 FROM 1:3 TO PREVENT AIR TRAPPING DUE TO OBSTRUCTIVE HX, AND HELP PT EXHALE THEIR ENTIRE VOLUME, FLOW/WAVE FORM REACHES BASELINE, WILL NOTIFY ONCOMING RT.
[2022-03-10] VITALS (25 sets, daily range): BP systolic 79–179; BP diastolic 29–77
--- NOTE | 2022-03-10 00:54 | NUR ---
PATIENT MOVED TO ICU 4 FROM ICU1 STILL SEDATED ON PROPOFOL, LEVOPHED, VASOPRESSIN. PATIENT HAS LEFT SUBCLAVIAN TRIPLE LUMEN. NS INFUSING AT 100CC HOUR. PATIENT HAS A O.G.T-TUBE TO LOW INTERMITTENT SUCTION.SCANT AMOUNT COMING OUT. SETTING ON ET-TUBE RATE 16, TV 450, FI02 35%, PEEP 5. SAT 98%.HAD LARGE DARK GREEN SOFT STOOL. TEMP 98.5 B/P 114/72. SINUS ON MONITOR LUNGS DIMINISH NO DISTRESS AT THIS TIME.
[2022-03-10] MEDS: PROPOFOL 1000 MG/100 ML PREMIX 100 ML IV PRN ×5 (01:37→20:32)
[2022-03-10] MEDS ORDERED: HYDRAGUARD CREAM TP ONE (04:30)
[2022-03-10] MEDS: CLINDAMYCIN 600 MG in DEXTROSE 5% 50 ML IV SCH ×3 (05:43→20:33)
[2022-03-10] MEDS ORDERED: HYDRAGUARD CREAM TP PRN (05:55)
[2022-03-10 06:29] LABS: ANION GAP 13.7 (8-16); CARBON DIOXIDE 26.3 mmol/L (21-32); CHLORIDE 105 mmol/L (98-107); CREATININE 1.3 mg/dL (0.6-1.3); GLUCOSE 135 mg/dL (74-106); SODIUM SERUM 141 mmol/L (136-145); UREA NITROGEN, BLOOD 17 mg/dL (7-18)
[2022-03-10 06:30] LABS: BASOPHILS # (AUTO) 0.1 K/uL (0.00-0.22); BASOPHILS % (AUTO) 0.4 % (0.0-2.0); EOSINOPHILS # (AUTO) 0.2 K/uL (0-0.4); EOSINOPHILS % (AUTO) 1.5 % (0.0-4.0); HEMATOCRIT 32.7 % (36-48); HEMOGLOBIN 10.4 g/dL (12.0-16.0); LYMPHOCYTES # (AUTO) 1.3 K/uL (2.5-16.5); LYMPHOCYTES % (AUTO) 9.6 % (20.5-51.1); MEAN CORPUSCULAR HEMOGLOBIN 29 pg (27-31); MEAN CORPUSCULAR HGB CONC 32 g/dL (33-37); MEAN CORPUSCULAR VOLUME 92.6 fL (80-94); MONOCYTES # (AUTO) 0.4 K/uL (0.8-1.0); MONOCYTES % (AUTO) 3.2 % (1.7-9.3); NEUTROPHILS % (AUTO) 85.3 % (42.2-75.2); PLATELET COUNT (AUTO) 339 K/uL (140-450); RED BLOOD CELL COUNT(AUTO) 3.53 MIL/uL (4.20-5.40); RED CELL DISTRIBUTION WIDTH 15.9 % (11.6-13.7); WHITE BLOOD COUNT (AUTO) 14.1 K/uL (4.8-10.8)
[2022-03-10] MEDS: PANTOPRAZOLE 40 MG INJ VIAL IVP SCH (09:47)
[2022-03-10] MEDS: NACL 0.9% 1,000 ML IV SCH (10:06)
--- NOTE | 2022-03-10 12:29 | NUR ---
DR. CORDOVA, PULMO MD ROUNDS DO CHEST X-RAY TO CHECK FLUIDS IN LUNGS, MAY NEED LASIX FOR GENERALIZED EDEMA.
[2022-03-10] MEDS ORDERED: FUROSEMIDE 40 MG/4 ML VIAL IVP SCH (12:55)
[2022-03-10] MEDS: FOAM DRESSING TP SCH (13:00)
[2022-03-10] MEDS: HYDRAGUARD CREAM TP SCH (13:03)
--- NOTE | 2022-03-10 13:16 | NUR ---
WOUND CARE EVALUATION NOTE: PT. ADMITTED WITH SACRALCOCCYX NON-BLANCHABLE REDNESS 3X4CM, SKIN MOIST INTACT. GENERALIZED SKIN RASHES TO TRUNK OF BODY AND LIMBS WILL START WITH SKIN CARE PROTOCOLS AND CONTINUE TO FOLLOW PRESSURE INJURY PREVENTION INTERVENTIONS. RECOMMENDATIONS -APPLY HYDRAGUARD TO TRUNK OF BODY AND LIMBS BID -APPLY FOAM DRESSING TO SACRALCOCCYX QD AND PRN IF SOILING -POSITIONING: TURN AND REPOSITION PATIENT Q 2H OR SOONER USE PILLOWS TO KEEP BONY PROMINENCES FROM DIRECT CONTACT WITH SURFACES USE REPOSITIONING WEDGES TO PROVIDE 30-DEGREE ANGLE FOR SIDE LYING POSITIONS OFFLOADING OR FOAM DRESSING TO ALL TUBING TO PREVENT MEDICAL DEVICES RELATED PRESSURE INJURY -RE-EVALUATING AND MANAGING INCONTINENCE MONITOR SKIN CONDITION DURING POSITION CHANGE DO NOT MASSAGE REDNESS, BONY PROMINENCES FREQUENT JAH-CARE AND PROVIDE BARRIER CREAMS PRN IF SOILING MOISTURE CONTROL BY OFFER BED EVERETT/URINAL /ABSORBENT PAD TO WICK AND HOLD MOISTURE KEEP SKIN DRY AND PROTECT FROM FRICTION -MANAGE FRICTION/SHEAR/MOBILITY KEEP HOB AT THE LOWEST LEVEL OF ELEVATION NO MORE THAN 30 DEGREE UNLESS OTHERWISE CONTRAINDICATED USE LIFT SHEET OR TRANSFER DEVICE TO MOVE PATIENT AND PREVENT LATERAL SHEER. PROTECT HEELS, ELBOWS BONY PROMINENCES WITH SKIN BERRIES OR FOAM DRESSING IF EXPOSED TO FRICTION OFFLOAD BILATERAL HEELS BY PLACING PILLOWS UNDER CALVES AT ALL TIMES, UNLESS OTHERWISE CONTRAINDICATED -PRESSURE REDISTRIBUTION SURFACE THERAPY LASHAUN ISOFLEX MATTRESS -NUTRITION: PLEASE FOLLOW RD RECOMMENDATIONS AND OFFER NUTRITION SUPPLEMENTS IF ORDERED.
--- NOTE | 2022-03-10 13:30 | NUR ---
ATTEMPTED TO REACH PATIENTS EMERGENCY CONTACT JAVIER, FOR THE PURPOSE OF GATHERING COLLATERAL INFORMATION, HOWEVER UNSUCCESSFUL. LEFT HIPPA COMPLIANT , REQUESTING A RETURN PHONE CALL.
--- NOTE | 2022-03-10 15:20 | NUR ---
03/10/2022 RD INITIAL ASSESSMENT COMPLETED. PLEASE REFER TO NUTRITION ASSESSMENT UNDER CARE ACTIVITY FOR ESTIMATED NUTRITIONAL NEEDS. 1.RECOMMEND VITAL 1.2 YANNA WITH A GOAL RATE OF 50 ML/HR -START @ 10ML/HR AND INCREASE BY 10 ML Q4H TOLERATED UNTIL GOAL RATE OF 50ML/HR IS REACHED. -FWF 150 ML Q6H -THIS WILL PROVIDE ~1440 KCAL AND 90 GRAMS OF PROTEIN MEETING 100% OF ESTIMATED ENERGY NEEDS. 2.MONITOR FOR GASTRIC RESIDUALS. 3.RD TO FOLLOW-UP IN 2-3 DAYS PATIENT IS HIGH RISK. MAYCOL VASQUES RD
[2022-03-10] MEDS: LEVOFLOXACIN 500 MG/D5W PREMIX 100 ML IV SCH (15:23)
--- NOTE | 2022-03-10 19:15 | NUR ---
ASSUMED CARE OF PT.INITIAL ASSESSMENT COMPLETED.PT SEDATED.RASS -3.SR NOTED ON MONITOR, GENERALIZED PITTING +2 EDEMA ALSO NOTED.ORALLY INTUBATED.VENT SETTINGS AC V/C FIO2 35% TV450 RATE 16 PEEP5.W/TLC TO LT SC BROWN AND BLUE PORT W/GOOD BLOOD RETURN,WHITE PORT NO BLOOD RETURN INFUSING ORDERED IVF, PROPOFOL DRIP QT 35MCG/KG/MIN,DRY WT 98.4KGS, AND LEVOPHED 8MG IN 250ML D5W AT 4MCG/MIN.W/OGT INTACT.WILL START TUBE FEEDING ORDERED.W/BILATERAL SOFT WRIST ALREADY IN PLACE.NO SIGNS OF INJURIES NOTED AT THIS TIME.W/RAY CATHETER TO BSD DRAINING SMALL AMT OF YELLOW URINE W/SEDIMENTS.W/RASHES TO BACK,PERINEAL AREA AND SACRAL AREA NOTED.FLACC 0.CALL LIGHT WITHIN REACH.FALL PRECAUTION IN PLACE.
--- NOTE | 2022-03-10 20:00 | NUR ---
ORAL CARE USING VAP KIT RENDERED.PT ON PROTONIX DAILY FOR GI PROPHYLAXIS AND HEPARIN FRO DVT PROPHYLAXIS.REPOSITIONED. Addendum: 03/11/22 at 0038 by Lori Cota RN OGT FEEDING VITAL AF STARTED ORDERED.LT HEEL WITH BLANCHABLE REDNESS NOTED.HEEL PROTECTOR APPLIED
--- NOTE | 2022-03-10 23:07 | NUR ---
INTERMITTENT PRODUCTIVE COUGHING NOTED; PT SUCTIONED, MODERATE AMT OF CREAMY SECRETIONS SUCTIONED
[2022-03-11] VITALS (32 sets, daily range): BP systolic 91–132; BP diastolic 37–74
[2022-03-11] MEDS: PROPOFOL 1000 MG/100 ML PREMIX 100 ML IV PRN ×3 (00:29→21:37)
[2022-03-11] MEDS: NACL 0.9% 1,000 ML IV SCH ×3 (00:30→20:27)
[2022-03-11] MEDS: HYDRAGUARD CREAM TP SCH ×2 (00:32→12:56)
--- NOTE | 2022-03-11 00:38 | NUR ---
ORAL CARE DONE.INTERMITTENT COUGHING STILL NOTED.REPOSITIONED.FLACC 0
--- NOTE | 2022-03-11 02:00 | NUR ---
PTS CONDITION REMAINS UNCHANGED.STILL ETT TO VENT FIO2 35%, SECRETIONS SUCTIONED NEEDED.FLACC 0.REPOSITIONED.
--- NOTE | 2022-03-11 04:15 | NUR ---
ORAL CARE DONE.REPOSITIONED.FLACC 0
[2022-03-11] MEDS: CLINDAMYCIN 600 MG in DEXTROSE 5% 50 ML IV SCH ×2 (04:56→12:55)
[2022-03-11 05:17] LABS: ANION GAP 7.4 (8-16); CARBON DIOXIDE 31.8 mmol/L (21-32); CHLORIDE 109 mmol/L (98-107); GLUCOSE 119 mg/dL (74-106); POTASSIUM 3.2 mmol/L (3.5-5.1); SODIUM SERUM 145 mmol/L (136-145); UREA NITROGEN, BLOOD 12 mg/dL (7-18)
[2022-03-11 05:23] LABS: BASOPHILS % (AUTO) 0.3 % (0.0-2.0); EOSINOPHILS # (AUTO) 0.3 K/uL (0-0.4); EOSINOPHILS % (AUTO) 4.6 % (0.0-4.0); HEMOGLOBIN 8.7 g/dL (12.0-16.0); LYMPHOCYTES # (AUTO) 0.6 K/uL (2.5-16.5); LYMPHOCYTES % (AUTO) 7.4 % (20.5-51.1); MEAN CORPUSCULAR HEMOGLOBIN 30 pg (27-31); MEAN CORPUSCULAR HGB CONC 32 g/dL (33-37); MEAN CORPUSCULAR VOLUME 92.3 fL (80-94); MONOCYTES # (AUTO) 0.3 K/uL (0.8-1.0); MONOCYTES % (AUTO) 4.2 % (1.7-9.3); NEUTROPHILS # (AUTO) 6.3 K/uL (1.8-7.7); NEUTROPHILS % (AUTO) 83.5 % (42.2-75.2); PLATELET COUNT (AUTO) 247 K/uL (140-450); RED BLOOD CELL COUNT(AUTO) 2.92 MIL/uL (4.20-5.40); RED CELL DISTRIBUTION WIDTH 15.1 % (11.6-13.7); WHITE BLOOD COUNT (AUTO) 7.5 K/uL (4.8-10.8)
--- NOTE | 2022-03-11 05:33 | NUR ---
ALL DUE MEDS GIVEN, PT SUCTIONED WITH MODERATE AMT OF CREAMY SECRETIONS NOTED.REPOSITIONED.FLACC 0
[2022-03-11] MEDS: POTASSIUM CHLORIDE 20% 40 MEQ/15 ML UDC GT PRN (06:49)
--- NOTE | 2022-03-11 06:50 | NUR ---
K3.2; POTASSIUM CHLORIDE/OGT ADMINISTERED.
--- NOTE | 2022-03-11 07:55 | NUR ---
BM NOTED MODERATE AMT OF DARK BROWNISH/TARRY SOFT STOOL.PT CLEANED, HYDRA GUARD APPLIED TO SACRUM AND PERINEAL AREA.REPOSITIONED.FLACC 0
[2022-03-11] MEDS: PANTOPRAZOLE 40 MG INJ VIAL IVP SCH (08:50)
--- NOTE | 2022-03-11 08:58 | NUR ---
Received report from SABI Gonzalez. Pt found on supine, intubated on ventilator. Pt on Propofol 35 mcg and no vasopressors infusing at this time. VSS. Received call from [facility] and spoke to Denise. I gave her an update on patient regarding her status.
--- NOTE | 2022-03-11 10:45 | NUR ---
PT PLACED ON SBT TRAIL OF CPAP OF 5 AND PRESSURE SUPPORT OF 12. PT DID NOT TOLERATE THE TRAIL WELL. PT BECAME TACHYPNEA AND TACHYCARDIA WHILE ACHIEVING LOW TIDAL VOLUMES. PT HAD FULL SUPPORT AC/VC SWITCHED BACK AFTER 10 MINUTES OF SBT TRAIL.
--- NOTE | 2022-03-11 10:54 | NUR ---
DC PLANNIN YRS OLD FEMALE PATIENT WAS ADMITTED FROM HOME WITH A DX OF RESP DISTRESS. PATIENT HAS A HX OF COPD AND STROKE. PATIENT INTUBATED AND SEDATED, FIO2 35%. ON VASOPRESSIN, LEVOPHED AND PROPOFOL DRIP . IV ABX LEVAQUIN. CXR SHOWED MODERATED BILATERAL PERIHILAR AND BASAL PULMONARY OPACITIES. RAPID COVID TEST NEGATIVE. CONSULTED WITH PULMO AND ID. DC PLAN PER PATIENT RESPONSE TO THE TREATMENT. CM TO FOLLOW Addendum: 03/13/22 at 1620 by Christianne Bill RN DC PLANNING: STILL INTUBATED SEDATED ON PROPOFOL DRIP, SBT TRIAL LATER TODAY. CLINICAL UPDATE GIVEN TO ZAK MCNALLY AT [facility]. CM TO FOLLOW
[2022-03-11] MEDS ORDERED: FUROSEMIDE 40 MG/4 ML VIAL IVP ONE (10:57)
[2022-03-11] MEDS ORDERED: FUROSEMIDE 40 MG/4 ML VIAL IVP SCH (11:00)
--- NOTE | 2022-03-11 11:00 | NUR ---
RT at bedside for CPAP trial.
--- NOTE | 2022-03-11 11:07 | NUR ---
Pt unable to tolerate CPAP trials per RT. They will come by later and follow up.
[2022-03-11] MEDS: FOAM DRESSING TP SCH (12:56)
--- NOTE | 2022-03-11 14:14 | NUR ---
received REPORT FROM JA CELESTIN FOR CONTINUITY CARE. SHE IS ETT TO VENT.SETTING ACVC 35% FIO2 TV 450RATE 16 PEEP 5 IV FLUID LT. IJ NS INFUSING @ 100ML/H AND RT AC SALINE LOCK. , RAY CATH DRAIN CLEAR DINO URINE.
[2022-03-11] MEDS: LEVOFLOXACIN 500 MG/D5W PREMIX 100 ML IV SCH (14:39)
--- NOTE | 2022-03-11 15:30 | NUR ---
FAMILY HER GRAND DAUGHTER VISIT AT BED SIDE.
--- NOTE | 2022-03-11 16:05 | NUR ---
DC PLANNING SW OUTREACHED TO PATIENTS EMERGENCY CONTACTS JAVIER SAAVEDRA, DAUGHTER, AND JHOAN BARFIELD, GRANDDAUGHTER/CAREGIVER TO GATHER COLLATERAL INFORMATION. PER NURSE NOTES, PATIENT A&OX0. JAVIER REPORTS THAT PATIENT RESIDES WITH JHOAN BARFIELD, GRANDDAUGHTER/ CAREGIVER AT THE ADDRESS ON FILE. JAVIER IDENTIFIED HERSELF EMERGENCY CONTACT AND MDM. PER JHOAN, PATIENT MEETS WITH PCP DR. SENIOR CONSISTENTLY, EVERY 2-3 MONTHS. LAST VISIT; 02/13. PATIENT IS REPORTED TO MEET WITH SALES SERVICE TECHNICIAN DR ELLIS, ON A CONSISTENT BASIS, LAST VISIT WAS A VIRTUAL VISIT ON 02/10. PATIENT IS REPORTED TO BE MEDICATION COMPLIANT. FAMILY DENIES BARRIERS IN ACCESSING NEEDED MEDICATIONS AND REPORTS RECEIVING MEDICATIONS FROM [facility] WHICH IS MAILED TO THE FAMILY HOME. PATIENT IS TOTAL CARE AND IS BED BOUND. JHOAN REPORTS PROVIDING PATIENT WITH CAREGIVING NEEDS. FAMILY REPORTS PATIENT HAS BEEN WITH HOSPICE CARE ON TWO OCCASIONS SINCE . PATIENT WAS ON HOSPICE CARE WITH [facility] AUG 02- APR 02 WHICH WAS REVOKED BY FAMILY AND RETURN TO HOSPICE IN SEP 03 AFTER SUFFERING A STROKE. PER FAMILY, PATIENT WAS TAKEN OFF HOSPICE CARE IN JANUARY 01 PATIENT HAS GAINED WEIGHT AND NO LONGER MET CRITERIA. PER FAMILY PATIENT IS CURRENTLY ON HOME HEALTH SERVICE WITH [facility] [phone]. PATIENT RECEIVES PT 2-3X/WEEK AND NURSE WHO COMES 1X WEEKLY. PATIENT BEGAN HOME HEALTH ON 02/07, LAST HH VISIT WAS ON 03/05. FAMILY REPORTS THAT DC PLAN IS FOR PATIENT TO RETURN HOME WHEN CLINICALLY STABLE WITH CONSIDERATIONS MADE WITH DR SALCEDO. SW INQUIRED ON RESOURCES NEEDED, FAMILY DECLINED AT THIS TIME.
--- NOTE | 2022-03-11 17:00 | NUR ---
ORAL CARE AND SKIN CARE GIVEN , REPOSITION.
--- NOTE | 2022-03-11 19:16 | NUR ---
RECEIVED REPORT FROM AM SHIFT SABI MTZ
--- NOTE | 2022-03-11 19:43 | NUR ---
PATIENT A&0 X0. UNABLE TO RESPOND TO NAME OR TOUCH. VENT SETTINGS ACVC FI02 - 35% VT - 450ML RATE - 16 PPEAK - 32 PEEP - 5. PATIENT HAS OGT TUBE AND HAS TUBE FEEDING VITAL RUUNING AT 40ML/HR 150ML FLUSH EVERY [address] IN PLACE AND PATENT. SR ON CANAL SUPERINTENDENT. CL TO LEFT IJ. NS RUNNING AT 100 ML/HR. PROPOFOL 30 ML/HR. +1 PITTING EDEMA NOTED TO EXTREMITIES. SOFT RESTRAINTS IN PLACE. NO INJURIES NOTED.
--- NOTE | 2022-03-11 20:46 | NUR ---
SUPERVISOR [employer]KE HANDLING ANNE CALLED TO INFORM THAT THERE IS MASS IN PLEURAL SPACE OF THE HEART. HE SAID HE WILL INFORM DR. HUDSON IN THE MORNING HE IS NOT ANSWERING HIS PHONE RIGHT NOW. WILL FOLLOW UP IN AM. Addendum: 03/12/22 at 0337 by Norm Banks RN DISREGARD. WRONG PATIENT.
--- NOTE | 2022-03-11 22:00 | NUR ---
SMALL BM. DARK BROWN/GREEN IN COLOR.
[2022-03-12] VITALS (26 sets, daily range): BP systolic 87–159; BP diastolic 28–124
[2022-03-12] MEDS: HYDRAGUARD CREAM TP SCH ×2 (01:00→13:00)
--- NOTE | 2022-03-12 01:00 | NUR ---
PATIENT REPOSITIONED. VITALS WITHIN PERSONAL RANGE.
[2022-03-12] MEDS: PROPOFOL 1000 MG/100 ML PREMIX 100 ML IV PRN ×2 (03:16→18:50)
--- NOTE | 2022-03-12 04:03 | NUR ---
PT TEMP 97.1.
[2022-03-12 06:52] LABS: BASOPHILS # (AUTO) 0.1 K/uL (0.00-0.22); BASOPHILS % (AUTO) 0.9 % (0.0-2.0); EOSINOPHILS # (AUTO) 0.4 K/uL (0-0.4); EOSINOPHILS % (AUTO) 5.6 % (0.0-4.0); HEMATOCRIT 26.4 % (36-48); HEMOGLOBIN 8.6 g/dL (12.0-16.0); LYMPHOCYTES # (AUTO) 0.6 K/uL (2.5-16.5); LYMPHOCYTES % (AUTO) 8.7 % (20.5-51.1); MEAN CORPUSCULAR HEMOGLOBIN 30 pg (27-31); MEAN CORPUSCULAR HGB CONC 33 g/dL (33-37); MEAN CORPUSCULAR VOLUME 91.9 fL (80-94); MONOCYTES # (AUTO) 0.4 K/uL (0.8-1.0); NEUTROPHILS # (AUTO) 5.2 K/uL (1.8-7.7); NEUTROPHILS % (AUTO) 78.8 % (42.2-75.2); PLATELET COUNT (AUTO) 255 K/uL (140-450); RED BLOOD CELL COUNT(AUTO) 2.87 MIL/uL (4.20-5.40); RED CELL DISTRIBUTION WIDTH 15.6 % (11.6-13.7); WHITE BLOOD COUNT (AUTO) 6.6 K/uL (4.8-10.8)
[2022-03-12 07:06] LABS: ANION GAP 13.4 (8-16); CARBON DIOXIDE 27.5 mmol/L (21-32); CHLORIDE 108 mmol/L (98-107); CREATININE 0.9 mg/dL (0.6-1.3); GLUCOSE 127 mg/dL (74-106); SODIUM SERUM 146 mmol/L (136-145); UREA NITROGEN, BLOOD 14 mg/dL (7-18)
[2022-03-12 07:15] LABS: POTASSIUM 2.9 mmol/L (3.5-5.1)
[2022-03-12] MEDS: POTASSIUM CHLORIDE 20% 40 MEQ/15 ML UDC GT PRN (07:32)
--- NOTE | 2022-03-12 07:32 | NUR ---
REPORT GIVEN TO GREGORY LEMA. NOTIFIED HER OF POTASSIUM LEVEL 2.8.
--- NOTE | 2022-03-12 07:33 | NUR ---
RECEIVED REPORT FROM DENTAL CHAIR ASSEMBLER RN SRIKANTH FOR CONTINUITY OF CARE. PT A&OX0, SEDATED ON PROPOFOL. ETT TO VENT ACVC FIO2 32%, VT 450, RR 16, PEEP 5. SR ON MONITOR. TRIPLE LUMEN CENTRAL LINE TO RIGHT IJ INFUSING PROPOFOL AT 30 MCG/KG/MIN AND NS AT 100 ML/HR. LEVO REMAINS OFF. R AC 22G IV SALINE LOCK. GENERALIZED NONPITTING EDEMA. OGT IN PLACE INFUSING VITAL AF 1.2 AT 50 ML/HR, 150 ML WATER FLUSH Q6H. RESIDUAL 5 ML. F/C TO GRAVITY. GENERALIZED WEAKNESS. BILATERAL SOFT WRIST RESTRAINTS, NO S/S OF INJURY. STANDARD PRECAUTION. CALL LIGHT WITHIN REACH, BED IN LOWEST POSITION.
--- NOTE | 2022-03-12 07:50 | NUR ---
K+ 2.8. GAVE 40 MEQ POTASSIUM VIA OGT.
[2022-03-12] MEDS: PANTOPRAZOLE 40 MG INJ VIAL IVP SCH (08:21)
[2022-03-12] MEDS: NACL 0.9% 1,000 ML IV SCH ×2 (09:15→20:12)
--- NOTE | 2022-03-12 09:15 | NUR ---
RT NOTES DR. CORDOVA GAVE VERBAL ORDER FOR PT TO BE PUT ON CPAP /6 PS 12 40% . KEEP SATS > 92% .
--- NOTE | 2022-03-12 09:15 | NUR ---
EXAMINED BY DR. CORDOVA.
--- NOTE | 2022-03-12 09:38 | NUR ---
RT AT BEDSIDE TO BEGIN CPAP TRIALS.
--- NOTE | 2022-03-12 09:50 | NUR ---
SEEN AND EXAMINED BY DR. ALVAREZ.
[2022-03-12] MEDS: FOAM DRESSING TP SCH (13:00)
[2022-03-12] MEDS: LEVOFLOXACIN 500 MG/D5W PREMIX 100 ML IV SCH (15:08)
--- NOTE | 2022-03-12 15:50 | NUR ---
CPAP TRIAL ENDED D/T INCREASED COUGHING. PT TOLERATED NEARLY 6 HOURS OF CPAP.
--- NOTE | 2022-03-12 15:50 | NUR ---
03/12/22 RD FOLLOW UP COMPLETED. PLEASE REFER TO NUTRITION ASSESSMENT UNDER CARE ACTIVITY FOR ESTIMATED NUTRITIONAL NEEDS. 1.CONTINUE VITAL 1.2 YANNA @50 ML/HR WITH FWF 150 ML Q6H 2.MONITOR FOR GASTRIC RESIDUALS. 3.RD TO FOLLOW-UP IN 2-3 DAYS PATIENT IS HIGH RISK. MAYCOL VASQUES RD
--- NOTE | 2022-03-12 17:27 | NUR ---
RT NOTES. PT LASTED 5 HOURS ON CPAP 06/16 PS 12 WITH FIO2 40%. NO DISTRESS NOTED. TOOK PT OFF TO REST FOR THE NIGHT. RN AWARE. WILL CONTINUE TO MONITOR. O2 WAS TITRATED TO 40% FROM 30% DUE TO SATS AT 90%. FOLLOWING THE TITRATION PT HR WAS 91 AND SATURATION WAS >96%.
--- NOTE | 2022-03-12 17:45 | NUR ---
PT HAD MEDIUM SIZE GREEN/BROWN BM. CLEANED, TURNED, AND REPOSITIONED WITH LUIZ CELESTIN. APPLIED HYDRAGUARD TO RASHES AND APPLIED NEW FOAM DRESSING TO SACRUM. ORAL CARE DONE. PT COUGHING UP CLOUDY FOAMY SECRETIONS. SUCTIONED. SATTING 98%.
--- NOTE | 2022-03-12 19:05 | NUR ---
ENDORSED REPORT TO PERSONAL LINES UNDERWRITER RN VAN FOR CONTINUITY OF CARE.
--- NOTE | 2022-03-12 20:00 | NUR ---
RECEIVED REPORT FROM AM SHIFT RN PITA. PT RESPONSIVE TO SHAKING. NOT ABLE TO ANSWER GENERAL QUESTIONS. LUNGS CLEAR TO AUSCULATION. ETT TO VENT SETTINGS ACVC FI02 25 VT - 450 RATE - 16 PEEP - 5 PEEPE - 4 PEAK PRESSURE - 17. OGT TUBE FEEDING WITH VITAL 50ML/HR FLUSH 150ML Q6H. RESIDUAL 5ML. SINUS RHYTHM ON THE MONITOR. LEFT IJ CENTRAL LINE INTACT. PROPOFOL DRIP RUNNING AT 35MCG/KG/MIN. NS RUNNING AT 100ML/HR. NO S/SX OF PAIN. FLACC 0.
--- NOTE | 2022-03-12 22:05 | NUR ---
ORAL CARE DONE.
[2022-03-13] VITALS (28 sets, daily range): BP systolic 97–149; BP diastolic 53–79
--- NOTE | 2022-03-13 | NUR ---
PATIENT MOVED FROM BED 4 TO BED 6.
[2022-03-13] MEDS: PROPOFOL 1000 MG/100 ML PREMIX 100 ML IV PRN ×5 (00:07→19:57)
[2022-03-13] MEDS: HYDRAGUARD CREAM TP SCH ×2 (01:07→12:46)
--- NOTE | 2022-03-13 02:00 | NUR ---
SUCTIONED SECRETIONS AND PT REPOSITIONED.
--- NOTE | 2022-03-13 04:30 | NUR ---
AM CARE DONE. NO S/SX OF PAIN NOTED.
[2022-03-13] MEDS: NACL 0.9% 1,000 ML IV SCH ×2 (05:27→17:00)
[2022-03-13 06:04] LABS: ANION GAP 10.2 (8-16); CARBON DIOXIDE 28.2 mmol/L (21-32); CHLORIDE 109 mmol/L (98-107); CREATININE 0.8 mg/dL (0.6-1.3); GLUCOSE 128 mg/dL (74-106); POTASSIUM 3.4 mmol/L (3.5-5.1); SODIUM SERUM 144 mmol/L (136-145); UREA NITROGEN, BLOOD 15 mg/dL (7-18)
[2022-03-13 07:02] LABS: BASOPHILS # (AUTO) 0.1 K/uL (0.00-0.22); BASOPHILS % (AUTO) 0.8 % (0.0-2.0); EOSINOPHILS # (AUTO) 0.4 K/uL (0-0.4); EOSINOPHILS % (AUTO) 5.2 % (0.0-4.0); HEMATOCRIT 25.3 % (36-48); HEMOGLOBIN 8.3 g/dL (12.0-16.0); LYMPHOCYTES # (AUTO) 0.6 K/uL (2.5-16.5); LYMPHOCYTES % (AUTO) 8.4 % (20.5-51.1); MEAN CORPUSCULAR HEMOGLOBIN 30 pg (27-31); MEAN CORPUSCULAR HGB CONC 33 g/dL (33-37); MEAN CORPUSCULAR VOLUME 91.6 fL (80-94); MONOCYTES # (AUTO) 0.5 K/uL (0.8-1.0); MONOCYTES % (AUTO) 7.7 % (1.7-9.3); NEUTROPHILS # (AUTO) 5.4 K/uL (1.8-7.7); NEUTROPHILS % (AUTO) 77.9 % (42.2-75.2); PLATELET COUNT (AUTO) 249 K/uL (140-450); RED BLOOD CELL COUNT(AUTO) 2.77 MIL/uL (4.20-5.40); RED CELL DISTRIBUTION WIDTH 15.9 % (11.6-13.7); WHITE BLOOD COUNT (AUTO) 6.9 K/uL (4.8-10.8)
--- NOTE | 2022-03-13 07:15 | NUR ---
REPORT GIVEN TO AM SHIFT SABI LEMA.
--- NOTE | 2022-03-13 07:20 | NUR ---
RECEIVED REPORT FROM PERISHABLE FRUIT INSPECTOR RN SRIKANTH FOR CONTINUITY OF CARE. PT A&OX0, SEDATED ON PROPOFOL. ETT TO VENT ACVC FIO2 30%, VT 450, RR 16, PEEP 5. SR ON MONITOR. TRIPLE LUMEN CENTRAL LINE TO LEFT IJ INFUSING PROPOFOL AT 35 MCG/KG/MIN AND NS AT 100 ML/HR. LEVO REMAINS OFF. R AC 22G IV SALINE LOCK. GENERALIZED PITTING EDEMA. OGT IN PLACE INFUSING VITAL AF 1.2 AT 50 ML/HR, 150 ML WATER FLUSH Q6H. RESIDUAL 5 ML. F/C TO GRAVITY, DINO URINE. GENERALIZED WEAKNESS. BILATERAL SOFT WRIST RESTRAINTS, NO S/S OF INJURY. STANDARD PRECAUTION. CALL LIGHT WITHIN REACH, BED IN LOWEST POSITION.
--- NOTE | 2022-03-13 07:45 | NUR ---
K+ LEVEL 3.4, GAVE 40 MEQ ELIXIR VIA OGT.
[2022-03-13] MEDS: POTASSIUM CHLORIDE 20% 40 MEQ/15 ML UDC GT PRN (07:51)
[2022-03-13] MEDS: PANTOPRAZOLE 40 MG INJ VIAL IVP SCH (08:22)
--- NOTE | 2022-03-13 08:30 | NUR ---
SEEN AND EXAMINED BY DR. ALVAREZ.
--- NOTE | 2022-03-13 10:40 | NUR ---
RT AT BEDSIDE, BEGAN CPAP TRIALS.
--- NOTE | 2022-03-13 12:30 | NUR ---
DR. CORDOVA AT BEDSIDE. ORDERED TO CONTINUE CPAP TRIALS DAILY UNTIL MENTATION IS BETTER. Addendum: 03/13/22 at 1257 by Cait Child RN ALSO ORDERED LASIX 40MG IVP BID.
[2022-03-13] MEDS: FOAM DRESSING TP SCH (12:45)
--- NOTE | 2022-03-13 12:50 | NUR ---
CPAP TRIAL ENDED D/T INCREASED COUGHING BY PT. VENT KICKED BACK TO PREVIOUS SETTINGS.
[2022-03-13] MEDS: FUROSEMIDE 20 MG/2 ML VIAL IVP SCH ×2 (12:59→20:39)
[2022-03-13] MEDS: LEVOFLOXACIN 500 MG/D5W PREMIX 100 ML IV SCH (14:40)
--- NOTE | 2022-03-13 16:35 | NUR ---
PERFORMED CHG BATH, FULL LINEN AND GOWN CHANGE. PT DESATTS TO MID 80'S WITH TURNING. ADMINISTERED TWO MINUTES OF 100% FIO2, WHICH BROUGHT SATURATIONS UP TO LOW 90'S. SMALL BM, BROWN/GREEN IN COLOR. CLEANED, TURNED AND REPOSITIONED. PLACED PILLOW BELOW HIP. CATHETER CARE PERFORMED. ORAL CARE RENDERED.
--- NOTE | 2022-03-13 19:10 | NUR ---
ENDORSED BEDSIDE REPORT TO DONNY CELESTIN FOR CONTINUITY OF CARE.
--- NOTE | 2022-03-13 19:40 | NUR ---
RECEIVED ENDORSEMENT FROM DAY SHIFT (SATYA Higginbotham RN). PATIENT IS CURRENTLY ON PROPOFOL DRIP AT 40MCGS/KG/MIN NORMAL SALINE CURRENTLY RUNNING AT 100ML/HR CURRENT VENT SETTINGS: -AC/VC -RATE = 16 -TIDAL VOLUME = 450 -FIO2 = 30 -PEEP = 5 RESTRAINTS NEEDS TO BE RENEWED AT 1150AM PATIENT WAS ABLE TO TOLERATE CPAP FOR 2HRS PATIENT HAS CURRENTLY VITAL AF 1.2 (FEEDING) RUNNING AT 50ML/HR WITH 150ML H20 FLUSH Q6
--- NOTE | 2022-03-13 21:00 | NUR ---
ALL ORDERED MEDICATIONS ADMINISTERED PER EMAR.
--- NOTE | 2022-03-13 21:42 | NUR ---
SPOKE WITH PATIENT'S DTR JAVIER AT BEDSIDE -DISCUSSED CODE STATUS -DISCUSSED TERMINAL EXTUBATION DTR WOULD LIKE TO SPEAK WITH MD ON THURSDAY MORNING BEFORE MAKING FINAL DECISION. WILL SEND MESSAGE TO MD.
[2022-03-14] VITALS (16 sets, daily range): BP systolic 111–137; BP diastolic 52–90
[2022-03-14] MEDS: HYDRAGUARD CREAM TP SCH ×2 (01:00→13:18)
[2022-03-14] MEDS: NACL 0.9% 1,000 ML IV SCH ×2 (02:00→13:20)
[2022-03-14] MEDS: PROPOFOL 1000 MG/100 ML PREMIX 100 ML IV PRN ×4 (04:26→13:18)
--- NOTE | 2022-03-14 07:15 | NUR ---
RECEIVED PATIENT FROM NIGHT RN INTUBATED, SEDATED, TUBE FEEDING. PER REPORT VASQUEZ HERRERA WOULD LIKE TO SPEAK WITH MD FOR DO NOT RESUSCITATE. PATIENT HAD BEEN DESATURATING TO 91% PER RN. Addendum: 03/14/22 at 1538 by Agency Nurse 20, SABI RN LEVAR RN WAS DONNY.
--- NOTE | 2022-03-14 07:15 | NUR ---
ENDORSED PATIENT TO DAY SHIFT (SABI FRANCO)
[2022-03-14] MEDS: PANTOPRAZOLE 40 MG INJ VIAL IVP SCH (09:57)
[2022-03-14] MEDS: FUROSEMIDE 20 MG/2 ML VIAL IVP SCH (09:57)
[2022-03-14] MEDS ORDERED: FUROSEMIDE 20 MG/2 ML VIAL IVP SCH (11:00)
[2022-03-14] MEDS ORDERED: FUROSEMIDE 40 MG/4 ML VIAL IVP SCH (11:00)
[2022-03-14 11:02] LABS: BASOPHILS # (AUTO) 0.1 K/uL (0.00-0.22); BASOPHILS % (AUTO) 0.7 % (0.0-2.0); EOSINOPHILS # (AUTO) 0.5 K/uL (0-0.4); HEMATOCRIT 26.1 % (36-48); HEMOGLOBIN 8.6 g/dL (12.0-16.0); LYMPHOCYTES # (AUTO) 0.7 K/uL (2.5-16.5); LYMPHOCYTES % (AUTO) 8.9 % (20.5-51.1); MEAN CORPUSCULAR HEMOGLOBIN 30 pg (27-31); MEAN CORPUSCULAR HGB CONC 33 g/dL (33-37); MEAN CORPUSCULAR VOLUME 90.9 fL (80-94); MONOCYTES # (AUTO) 0.6 K/uL (0.8-1.0); MONOCYTES % (AUTO) 7.6 % (1.7-9.3); NEUTROPHILS # (AUTO) 5.9 K/uL (1.8-7.7); NEUTROPHILS % (AUTO) 75.8 % (42.2-75.2); PLATELET COUNT (AUTO) 271 K/uL (140-450); RED BLOOD CELL COUNT(AUTO) 2.87 MIL/uL (4.20-5.40); RED CELL DISTRIBUTION WIDTH 15.5 % (11.6-13.7); WHITE BLOOD COUNT (AUTO) 7.7 K/uL (4.8-10.8)
[2022-03-14 11:20] LABS: ANION GAP 9.6 (8-16); CARBON DIOXIDE 30.7 mmol/L (21-32); CHLORIDE 107 mmol/L (98-107); CREATININE 0.8 mg/dL (0.6-1.3); GLUCOSE 138 mg/dL (74-106); POTASSIUM 3.3 mmol/L (3.5-5.1); SODIUM SERUM 144 mmol/L (136-145); UREA NITROGEN, BLOOD 15 mg/dL (7-18)
--- NOTE | 2022-03-14 11:27 | NUR ---
WEANING FROM VENT. CPAP/PS 5/10 PROPOFOL SEDATION VACATION, STOPPED. STARTED WEANING ON VENT. AT 1004AM UNTIL 1127 AM. PATIENT SO DISTRESSED COUGHING, NO SECRETIONS, TACHYCARDIC 120. HYPERTENSIVE 157/110s mmHg. DAUGHTER JAVIER CALLED UP EARLIER ABOUT THE DECISION ON DO NOT RESUSCITATE. DR. ALVAREZ WILL SPEAK WITH THE DAUGHTER. Addendum: 03/14/22 at 1629 by Agency Nurse 20, SABI CELESTIN PT. WAS COUGHING, DOES NOT OBEY TO SIMPLE COMMANDS.
[2022-03-14] MEDS: FOAM DRESSING TP SCH (13:18)
[2022-03-14] MEDS ORDERED: MORPHINE SULFATE 50 MG in NACL 0.9% 45 ML IV PRN (13:45)
[2022-03-14] MEDS: POTASSIUM CHLORIDE 20% 40 MEQ/15 ML UDC GT PRN (13:46)
--- NOTE | 2022-03-14 13:58 | NUR ---
DAUGHTER JAVIER CAME & DECIDED TO DO TERMINAL EXTUBATION. MD ALVAREZ INFORMED. WILL DO TERMINAL EXTUBATION.
[2022-03-14] MEDS: LEVOFLOXACIN 500 MG/D5W PREMIX 100 ML IV SCH (15:21)
[2022-03-14] MEDS ORDERED: diazePAM 5 MG TAB PO PRN (15:50)
--- NOTE | 2022-03-14 16:29 | NUR ---
STARTED ON MORPHINE DRIP. DAUGHTER JAVIER AND ANOTHER DAUGHTER AND ONE FAMILY MEMBER DECIDED TO STAY WITH THE TERMINAL EXTUBATION. STOPPED TUBE FEEDING. TERMINAL EXTUBATION DONE. PATIENT SUCTIONED AND COMFORTED FAMILY BY RT. TITRATED MORPHINE PER PROTOCOL, PATIENT WAS GURGLY, COUGHING & NOT COMFORTABLE. ASKED FAMILY OF ANY QUESTIONS AND NEEDS. FAMILY AT THE BEDSIDE.
--- NOTE | 2022-03-14 16:39 | NUR ---
03/14/22 RD FOLLOW UP COMPLETED.PLEASE REFER TO NUTRITION ASSESSMENT UNDER CARE ACTIVITY FOR ESTIMATED NUTRITIONAL NEEDS. 1.CONTINUE VITAL 1.2 YANNA @50 ML/HR WITH FWF 150 ML Q6H 2.MONITOR FOR GASTRIC RESIDUALS. 3.RD TO FOLLOW-UP IN 2-3 DAYS PATIENT IS HIGH RISK. MAYCOL VASQUES RD
[2022-03-14] MEDS ORDERED: SCOPOLAMINE 1.5 MG/72 HR PATCH TD SCH (17:00)
[2022-03-14] MEDS ORDERED: MORPHINE SULFATE 100 MG in NACL 0.9% 90 ML IV PRN (17:35)
--- NOTE | 2022-03-14 17:59 | NUR ---
PT TERMINALLY EXTUBATED @ 1630. FAMILY AT BEDSIDE AND RN AWARE.
--- NOTE | 2022-03-14 18:00 | NUR ---
SUCTIONED PATIENT EVERY GURGLY AT THE THROAT. TITRATED MORPHINE GTT ACCORDING TO COMFORT, PT. GETS RESTLESS WITH GURGLY THROAT. INFORMED DR. ALVAREZ TO ORDER SCOPOLAMINE PATCH FOR THE ORAL SECRETIONS. APPLIED PATCH ON LEFT MASTOID AREA. SECOND DAUGHTER ASKED ABOUT THE LOW SATURATION & THE HIGH HEART RATE. INFORMED THAT THE PATIENT CANNOT BREATHE ON HER OWN EVEN WITH THE WEANING, PT. TEND TO STRUGGLE/LABORED & CANNOT KEEP OXYGEN SATURATION AT THE NORMAL LEVEL & HEART RATE GOES UP TO COMPENSATE, SAME WITH THE BP. DPOA DAUGHTER JAVIER IS AT OUTSIDE.
--- NOTE | 2022-03-14 19:27 | NUR ---
PT TRANSFERRED FROM ICU FOR COMFORT CARE. PT WAS TERMINALLY EXTUBATED 1630. PT CURRENTLY ON 12 MG/HR MORPHINE. PT HAS LEFT SUBCLAVIAN TRIPLE LUMEN AND RIGHT AC 20 GAUGE. PT HAS FC DRAINING LIGHT DINO URINE. PT IS ON RA. PT O2 SAT IS 46%. BP 93/22, P 102, RR 16, T 98.0. DAUGHTER BY BEDSIDE. WILL CONTINUE TO PROVIDE COMFORT CARE FOR FAMILY AND PT.
--- NOTE | 2022-03-14 22:35 | NUR ---
PT DAUGHTER IS STAYING THE NIGHT WITH THE PT. RECLINER PROVIDED. PT O2 SAT IS 33%. COMFORT MEASURES PROVIDED. WILL CONTINUE TO MONITOR THE PT.
--- NOTE | 2022-03-15 00:25 | NUR ---
PT OBSERVED. PT IS SLEEPING COMFORTABLY IN BED. MORPHINE DRIP STILL RUNNING 12MG/HR. COMFORT MEASURES TAKEN. WILL CONTINUE TO MONITOR THE PT.
--- NOTE | 2022-03-15 01:18 | NUR ---
PT AT 0100. BOX FINISHER TOREY PRONOUNCE . PROVIDED COMFORT CARE FOR DAUGHTER BY BEDSIDE. CALL [facility] REGARDING THE PT PASSING AWAY. SPOKE WITH URIEL. PT IS NOT ELIGIBLE.
--- NOTE | 2022-03-15 01:43 | NUR ---
SPOKE WITH THE SOFTWARE IMPLEMENTATION SPECIALIST (ROWAN CELESTIN) REGARDING THE RELEASE OF THE PT BODY. SOFTWARE IMPLEMENTATION SPECIALIST SAID IT IS OKAY TO RELEASE THE BODY.
--- NOTE | 2022-03-15 02:15 | NUR ---
SPOKE WITH BRI FROM [facility] FOR THE NEWSPAPER CARRIER OF THE PT BODY. GAVE NECESSARY INFORMATION ABOUT THE PT. THEY GAVE AN ETA OF 2 TO 3 HOURS.
--- NOTE | 2022-03-15 03:55 | NUR ---
[facility] CAME IN TO MASK FORMER THE PT. PT WAS GURNEY INTO VEHICLE SAFELY.
== END 2022-03-15 01:00 | DRG 870 ==
LOC: MED 05:23 → MIC 06:06 → MTU 03-14 19:19
PROVIDERS: ADMIT Student in an Organized Health Care Education/Training Program; ATTEND Student in an Organized Health Care Education/Training Program
PROC: 5A1955Z Respiratory Ventilation, Greater than 96 Consecutive Hours (ICD-10-PCS; principal; 2022-03-08)
PROC: 0BH17EZ Insertion of Endotracheal Airway into Trachea, Via Natural or Artificial Opening (ICD-10-PCS; 2022-03-08)
PROC: 02HV33Z Insertion of Infusion Device into Superior Vena Cava, Percutaneous Approach (ICD-10-PCS; 2022-03-08)
DX: A41.9 Sepsis, unspecified organism (principal); R65.21 Severe sepsis with septic shock; J69.0 Pneumonitis due to inhalation of food and vomit; N17.0 Acute kidney failure with tubular necrosis; J96.01 Acute respiratory failure with hypoxia; J15.0 Pneumonia due to Klebsiella pneumoniae; E44.0 Moderate protein-calorie malnutrition; E87.2 Acidosis; J44.0 Chronic obstructive pulmonary disease with (acute) lower respiratory infection; Z20.822 Contact with and (suspected) exposure to COVID-19; E87.6 Hypokalemia; Z66 Do not resuscitate; I46.9 Cardiac arrest, cause unspecified; Z88.8 Allergy status to other drugs, medicaments and biological substances; Z79.899 Other long term (current) drug therapy; Z86.73 Personal history of transient ischemic attack (TIA), and cerebral infarction without residual deficits; Z68.34 Body mass index [BMI] 34.0-34.9, adult; Z99.81 Dependence on supplemental oxygen; Z87.891 Personal history of nicotine dependence; Z74.01 Bed confinement status
CPT/HCPCS: 36415; 71045; 80048; 80053; 81001; 83605; 83735; 85025; 85610; 85730; 87040; 87070; 87205; 93005; 94003; 94150; 96361; 96365; 99285; C9113; J1644; J1940; J1956; J2270; J2543; J2704; J3370; J3475; J3480; J3490; J7030; J7060; Q0092